=== PATIENT | male | born 1950 | race Caucasian/White ===

== ENCOUNTER 2024-02-11 10:52 | Outpatient (CLI) | payer MEDICARE, OTHER, SELFPAY ==
--- NOTE | ~2024-02-11 | US_ITS ---
EXAMINATION: US scrotum doppler DATE: 02/11/2024 11:27 INDICATION: Right testicular lump TECHNIQUE: Testicular sonogram utilizing grayscale and Doppler COMPARISON: None. FINDINGS: The right testis measures 3.9 x 1.8 x 2.5 cm. The left testis measures 3.4 x 2.0 x 2.4 cm. Symmetric normal grayscale appearance to both testes. There is normal vascular flow to both testes. There are s ubcentimeter anechoic epididymal cysts measuring up to 6 mm in maximal diameter on the right and 4 mm on the left. The bilateral epididymides are otherwise normal with normal vascular flow. There is no varicocele or hydrocele. IMPRESSION: 1. Subcentimeter bilateral epididymal cysts. Otherwise normal scrotal ultrasound. Reviewed, dictated and finalized at location A. IMPRESSION: 1. Subcentimeter bilateral epididymal cysts. Otherwise normal scrotal ultrasou nd.
== END 2024-02-11 10:53 ==
LOC: MICIMG 10:55
PROVIDERS: PCP Registered Nurse; Visit Provider Registered Nurse
DX: N50.3 Cyst of epididymis (principal)
CPT/HCPCS: 76870; 93976

== ENCOUNTER 2024-11-19 14:37 | Outpatient (CLI) | payer MEDICARE, OTHER, SELFPAY ==
--- NOTE | ~2024-11-19 | US_ITS ---
EXAMINATION: US carotid duplex BI DATE: 11/19/2024 15:09 INDICATION: Dizziness and giddiness. TECHNIQUE: Grayscale, color Doppler, and pulsed Doppler images of the cervical carotid arteries were obtained. The degree of vessel stenosis is placed in one of the following categories: normal, <50%, 5 0-69%, >=70% but less than near-occlusion, near-occlusion, or total occlusion. Note that percent sten osis relative to normal distal artery lumen diameter is indirectly measured from velocity measurement s as described by Ed, et al. Radiology 2003; 229:340-346. COMPARISON: None. FINDINGS: RIGHT: The right common carotid artery (CCA) peak systolic velocity (PSV) is 82 cm/s. The right internal car otid artery (ICA) PSV is 97 cm/s. The right ICA end-diastolic velocity (EDV) is 14 cm/s. The right IC A/CCA PSV ratio is 1.2. Grayscale and color Doppler images yield an estimate of <50% diameter reducti on from plaque in the ICA. There is antegrade flow in the right vertebral artery. LEFT: The left CCA PSV is 90 cm/s. The left ICA PSV is 105 cm/s. The left ICA EDV is 21 cm/s. The left ICA/ CCA PSV ratio is 1.2. Grayscale and color Doppler images yield an estimate of <50% diameter reduction from plaque in the ICA. There is antegrade flow in the left vertebral artery. IMPRESSION: 1. <50% stenosis in the right internal carotid artery. 2. <50% stenosis in the left internal carotid artery. Reviewed, dictated and finalized at location A. SE WIRE DRAWER
--- OUTSIDE RECORDS SUMMARY | 2024-11-19 16:59 | XMS_ITS | Encounter Summary ---
Author Organization [facility] Address [address] [place] [address] Care Team Providers Care Molder Shoulder Pad Name Role Phone Unavailable Primary Care Provider Unavailabl e Encounter Details Date Type Department Care Team (Late st Contact Info) Description 02/04/2020 Lab Requisition [facility] DermPath Lab [address] [facility], [place] [id number] Mirtha Wells MD [address] [facility] [address] [place] [address] Social History Tobacco Use Types Packs/Day Years Used Date Smoking Tobacco: Never Assessed Sex and Gender Information Value Date Recorded Sex Assigned at Not on file Gender Identity Not on file Sexual Orientation Not on file documented as of this encounter Plan of Treatment Not on file documented as of this encounter Procedures Procedure Name Priority Date/Time Associated Diagnosis Comments DERMATOPATH TECHNICAL REPORT Routine 02/04/2020 12:00 AM CDT documented in this encounter Results * DERMATOPATH TECHNICAL REPORT (02/04/2020 12:00 AM CDT) Case Report Dermatopathology Report Case: [id number] Authorizing Provider: Mirtha Wells MD Collected: 02/04/2020 12:00 AM Ordering Location: [facility] D[facility]Path Lab Received: 02/04/2020 10:43 AM Pathologist: Carmel Strong MD Specimens: A) - Skin, right post neck B) - Skin, right hairline/FH 0 12:44 PM CDT DERMATOPATHOLOGY LABORATORY Clinical History A-B: R/O BCC, irritated, non-healing. 0 12:44 PM CDT DERMATOPATHOLOGY LABORATORY Gross Description Specimen A: Received is one formalin filled container labeled with the patient's name and designated right post neck. The specimen consists of a shave measuring [id number]. Jar 0. Specimen B: Received is one formalin filled container labeled with the patient's name and designated right hairline/FH. The specimen consists of a shave measuring [id number]. Jar 0. [facility] Dermatopathology Laboratory performed the technical component only. 0 12:44 PM CDT DERMATOPATHOLOGY LABORATORY Embedded Images 0 12:44 PM CDT DERMATOPATHOLOGY LABORATORY DISCLAIMER An external and internal positive and negative controls are appropriate for the histochemical, immunohistochemical and immunofluorescence stain(s) in this case (if any), except where stated explicitly. The performance characteristics of the stain(s) cited in this report were developed and its performance characteristic determined by the Dermatopathology Laboratory at [facility], directed by Dr. Jenny Berger. These tests need not be, and therefore are not, approved by the [place] Food and Drug Administration. The tests are used for clinical purposes. 0 12:44 PM CDT DERMATOPATHOLOGY LABORATORY Pathology/Cytology TISSUE SPECIMEN FROM SKIN / Unknown 02/04/2020 02/04/2020 10:43 AM CDT Miscellaneous samples (specimen) TISSUE SPECIMEN FROM SKIN / Unknown 02/04/2020 02/04/2020 10:43 AM CDT Mirtha Wells MD LAB - PATHOLOGY/CYT OLOGY ORDERABLES DERMATOPATHOLOGY LABORATORY [facility] - Department of Dermatology [address] [place] [address], [address] [place] [address], [facility] [phone] documented in this encounter Visit Diagnoses Not on filedocumented in this encounter
--- OUTSIDE RECORDS SUMMARY | 2024-11-19 16:59 | XMS_ITS | Clinical Summary ---
Author Organization [facility] Address [address] [place] [address] Care Team Providers Care Mailing Specialist Name Role Phone Alaina Jennings HARINDERALFONZO Primary Care Provider Allergies Active Allergy Reactions Criticality Noted Date Comments Seasonal Eyes Water & Itch 03/10/2021 Medications latanoprost 0.005 % ophthalmic solution 7 Active ALPHAGAN P 0.15 % ophthalmic solution 0 Active dorzolamide-rashi olol 22.3-6.8 MG/ML Solution 0 Active atorvastatin (LIPITOR) 80 MG tabletIndicatio ns:Hyperlipidem ia Take 1 tablet (80 mg total) by mouth nightly at bedtime. 90 tablet 3 4 Active donepezil (ARICEPT) 5 MG TabIndications: MCI (mild cognitive impairment) Take 1 tablet (5 mg total) by mouth nightly at bedtime. 90 tablet 11 4 Active fluticasone propionate (FLONASE) 50 MCG/ACT nasal sprayIndication s:Seasonal allergies 2 sprays by Nasal route daily. 48 g 1 4 Active Additional Information Patient not taking.Reported on 11/05/2024 cetirizine (ZYRTEC) 10 MG tabletIndicatio ns:Seasonal allergies Take 1 tablet (10 mg total) by mouth daily. 90 tablet 1 4 Active Additional Information Patient not taking.Reported on 11/05/2024 guaiFENesin ER (MUCINEX) 600 MG 12 hr tablet Take 2 tablets (1,200 mg total) by mouth 2 (two) times daily. Active tamsulosin (FLOMAX) 0.4 MG CapIndications: Lower urinary tract symptoms (LUTS) Take 1 capsule (0.4 mg total) by mouth daily. 90 capsule 3 4 Active Additional Information Patient not taking.Reported on 11/05/2024 fluticasone propionate (FLONASE) 50 MCG/ACT nasal sprayIndication s:Dysfunction of left eustachian tube 2 sprays by Nasal route daily. 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 Hearing loss 09/28/2012 Hypogonadism, testicular 09/27/2012 Hyperlipidemia 05/13/2012 Resolved Problems Problem Noted Date Diagnosed Date Resolved Date Pre-operative clearance 01/19/2022 05/0 10/2021 Screening PSA (prostate specific antigen) 08/09/2017 06/04/2020 Encounters Date Type Department Care Team Description 11/12/2024 Telephone [facility] & Internal [address] [phone] Alaina Jennings APNP Lab Results 11/06/2024 7:40 AM AIRPLANE MECHANIC Laboratory Only [facility] Family & Internal [address] [phone] Alaina Jennings APNP 11/05/2024 9:00 AM AIRPLANE MECHANIC Office Visit [facility] Internal [address] [phone] Alaina Jennings APNP Weight Loss (Pt c/o decreased appetite and weight loss.); Dizziness 11/05/2024 Travel 10/13/2024 1:00 PM AIRPLANE MECHANIC Office Visit [facility] Multispecialty Care - [facility] [address], [address] [place] [phone] Kel Cummings MD Follow Up 10/13/2024 Travel 09/25/2024 Scan [facility] SRVCS Scanned, [facility] 08/29/2024 10:00 AM AIRPLANE MECHANIC Office Visit [facility] Family & Internal Medicine [address] [phone] Alaina Jennings, APNP Ear Problem (Pt c/o constant ringing in left ear. ); Vertigo- Recurrent 08/29/2024 Travel 08/22/2024 Telephone [facility] Internal [address] [phone] Alaina Jennings, APNP Problem from Last 3 Months Immunizations Name Administration Dates Next Due Fluarix (IIV4) 07/10/2019 Fluzone High Dose - >Age 65 (Prefilled Syringe) 07/10/2023,06/28/2022,07/05/2021, 018,09/11/2017 Influenza Adult (Generic) 06/04/2020,,06/18/2018, 017 MODERNA COVID-19 (12+), MRNA , LNP-S, PF, 50 MCG/0.5 ML (SPIKEVAX) 07/10/2023 MODERNA COVID-19 (RESTAUR[employer] K[employer] ROSIE JAMSHID), MRNA, LNP-S, PF, 50 MCG/ 0.25 ML DOSE 02/15/2022 Shingrix 06/21/2019,06/18/2019 Family History Medical History Relation Comments Cancer Father Lung Cancer Father Diabetes Maternal Grandmother Cancer Mother Tuberculosis Mother Relation Status Comments Father Maternal Grandmother Mother Social History Tobacco Use Types Packs/Day Years Used Date Smoking Tobacco: Never Passive Smoke Exposure: Past Smokeless Tobacco: Never Tobacco Cessation:Counseling Given: No Alcohol Use Standard Drinks/Week Comments Yes 1.7 (1 standard drink = 0.6 oz p ure alcohol) A WEEK AUDIT-C Answer Date Recorded Q1: How often do you have a drink containing alcohol? 2-4 times a month 01/23/2024 Q2: How many drinks containi ng alcohol do you have on a typical day when you are drinking? Patient does not drink Q3: How often do you have si x or more drinks on one occasion? Never 01/23/2024 PHQ-2 Answer Date Recorded Patient Health Questionnaire-2 Score 0 11/05/2024 Sex and Gender Information Value Date Recorded Sex Assigned at Not on file Legal Sex Male 4:21 PM CDT Gender Identity Male 09/07/2021 8:53 PM AIRPLANE MECHANIC Sexual Orientation Not on file Last Filed Vital Signs Vital Sign Reading Time Taken Comments Blood Pressure 104/54 11/05/2024 9:06 AM AIRPLANE MECHANIC Pulse 96 11/05/2024 9:06 AM AIRPLANE MECHANIC Temperature 35.9 C (96.6 F) 11/05/2024 9:06 AM AIRPLANE MECHANIC Respiratory Rate 16 11/05/2024 9:06 AM AIRPLANE MECHANIC Oxygen Saturation 98% 11/05/2024 9:06 AM AIRPLANE MECHANIC Inhaled Oxygen Concentration - - Weight 80.6 kg (177 lb 12.8 oz) 11/05/2024 9:06 AM AIRPLANE MECHANIC Height 177.8 cm (5' 10 ) 11/05/2024 9:06 AM AIRPLANE MECHANIC Body Mass Index 25.51 11/05/2024 9:06 AM AIRPLANE MECHANIC Plan of Treatment Upcoming Encounters Date Type Department Care Team (Late st Contact Info) Description 04/13/2025 1:00 PM CDT Office Visit [facility] Multispecialty Care - [address], [address] [place] [phone] Kel Cummings MD [address] [place] [address] Health Maintenance Due Date Last Done Comments Pneumococcal Vaccine: 65+ Years (1 of 1 - PCV) 2016 COVID-19 Vaccine (2023- season) 2024 07/10/2023, 06/28/2022, 02/15/2022, Additional history exists Influenza Adult (#1) 2024 07/10/2023, 06/28/2022, 07/05/2021, Additional history exists DTaP, Tdap and Td Vaccines (1 - Tdap) 01/22/2025 Postponed from 1970 (No Insurance Coverage) Zoster Vaccines (2 of 2) 01/22/2025 06/21/2019, 05/26 Postponed from 08/16/2019 (Going to Outside Clinic) Annual Medicare Wellness Visit 01/23/2025 01/23/2024 RSV Immunization or 60+ Years (1 - 1-dose 75+ series) 2026 Colorectal Cancer Screening Colonoscopy (10 Years) 07/04/2031 07/04/2021, 07/04/2021 Hepatitis C Completed 03/06/2022 PHQ-2 (Physician [place]) Completed 11/05/2024 Meningococcal B Vaccine Aged Out No l onger eligible based on patient's age to complete this topic Meningococcal Vaccine Aged Out No margaret yaritza eligible based on patient's age to complete this topic RSV Immunizations Under 20 Months Aged Out No longer eligible based on patient's age to complete this topic Procedures Procedure Name Priority Date/Time Associated Diagnosis Comments COLLECTION VENOUS BLOOD VENIPUNCTURE Routine 11/06/2024 8:08 AM AIRPLANE MECHANIC Dizziness Mixed hyperlipidemia Weight loss TSH W/REFLEX Routine 11/06/2024 8:08 AM AIRPLANE MECHANIC Weight loss Mixed hyperlipidemia LIPID PANEL Routine 11/06/2024 8:08 AM AIRPLANE MECHANIC Mixed hyperlipidemia CBC W/DIFF AUTOMATED Routine 11/06/2024 8:08 AM AIRPLANE MECHANIC Dizziness COMPREHENSIVE METABOLIC PANEL Routine 11/06/2024 8:08 AM AIRPLANE MECHANIC Dizziness ELECTROCARDIOGRAM (NON MIDMARK ACQUIRED) Routine 11/05/2024 9:46 AM AIRPLANE MECHANIC Dizziness REMOVAL IMPACTED CERUMEN IRRIGATION/LAVAGE UNILAT Routine 11/05/2024 9:00 AM AIRPLANE MECHANIC Impacted cerumen of right ear HEPATITIS C ANTIBODY W/RFX TO HCV RNA Routine 03/06/2022 12:34 PM CDT Need for hepatitis C screening test COLONOSCOPY Routine 07/04/2021 3:15 PM CDT from Last 3 Months or Most Recently Relevant to Health Maintenance Results * TSH W/REFLEX (11/06/2024 8:08 AM AIRPLANE MECHANIC) TSH 1.936 0.358 - 3.740 uIU/ML 11/06/2024 2:49 PM AIRPLANE MECHANIC [facility] 11/06/2024 8:0 8 AM AIRPLANE MECHANIC [facility] Final Resul t [facility] [address] [place] [address], * (ABNORMAL) COMPREHENSIVE METABOLIC PANEL (11/06/2024 8:08 AM AIRPLANE MECHANIC) SODIUM S/P/B 142 136 - 145 MMOL/L 11/06/2024 2:49 PM AIRPLANE MECHANIC [facility] POTASSIUM S/P/B 4.7 3.5 - 5.1 MMOL/L 11/06/2024 2:49 PM AIRPLANE MECHANIC [facility] CHLORIDE S/P/B 106 98 - 107 MMOL/L 11/06/2024 2:49 PM AIRPLANE MECHANIC [facility] CO2 27.0 21 - 32 MMOL/L 11/06/2024 2:49 PM AIRPLANE MECHANIC [facility] GLUCOSE 109(H) 70 - 99 MG/DL 11/06/2024 2:49 PM AIRPLANE MECHANIC [facility] BUN 11 7 - 18 MG/DL 11/06/2024 2:49 PM AIRPLANE MECHANIC [facility] CREATININE S/P/B 0.86 0.70 - 1.30 MG/DL 11/06/2024 2:49 PM AIRPLANE MECHANIC [facility] CALCIUM S/P/B 8.5 8.4 - 10.5 MG/DL 11/06/2024 2:49 PM [facility] BILIRUBIN TOTAL S/P/B 0.9 0.2 - 1.0 MG/DL 11/06/2024 2:49 PM [facility] ALKALINE PHOSPHATASE S/P/B 68 45 - 115 U/L 11/06/2024 2:49 PM [facility] AST 24 15 - 37 U/L 11/06/2024 2:49 PM [facility] ALT 33 16 - 63 U/L 11/06/2024 2:49 PM [facility] TOTAL PROTEIN S/P/B 6.3(L) 6.4 - 8.2 G/DL 11/06/2024 2:49 PM [facility] ALBUMIN S/P/B 3.3(L) 3.4 - 5.0 G/DL 11/06/2024 2:49 PM [facility] ANION GAP 9.0 5 - 15 MMOL/L 11/06/2024 2:49 PM [facility] Comment:REFERENCE RANGE NOT ESTABLISHED OSMOLALITY (CALC) 294 MOSM/KG 025 2:49 PM [facility] Comment:REFERENCE RANGE NOT ESTABLISHED GFR ESTIMATE >90 >90 ML/MIN/1. 73 M2 11/06/2024 2:49 PM [facility] GFR NOTES GFR REFERENCE S: 11/06/2024 2:49 PM [facility] Comment: THE ESTIMATED GFR IS CALCULATED USING THE 2020 CKD-EPI EQUATION. THE FOLLOWING CATEGORIES FOR GRADING RENAL FUNCTION ARE RECOMMENDED BY THE INTERNATIONAL SOCIETY OF NEPHROLOGY (KDIGO 2012 CLINICAL PRACTICE GUIDELINE). G1,NORMAL OR HIGH: >89 ml/min/1.73 m2 G2,MILDLY DECREASED: 60-89 ml/min/1.73 m2 G3A,MILDLY TO MODERATELY DECREASED: 45-59 ml/min/1.73 m2 G3B,MODERATELY TO SEVERELY DECREASED: 30-44 ml/min/1.73 m2 G4,SEVERELY DECREASED: 15-29 ml/min/1.73 m2 G5,KIDNEY FAILURE: <15 ml/min/1.73 m2 11/06/2024 8:08 AM AIRPLANE MECHANIC [facility] Final Resul t Performing Organization Address City/[facility]/[employer] Co de Phone Number [facility] [address] [place] [address], [place] [phone] * LIPID PANEL (11/06/2024 8:08 AM AIRPLANE MECHANIC) CHOLESTEROL 145 <200 MG/DL 11/06/2024 2:49 PM AIRPLANE MECHANIC [facility] TRIGLYCERIDES 68 <150 MG/DL 11/06/2024 2:49 PM AIRPLANE MECHANIC [facility] HDL 53 >40 MG/DL 11/06/2024 2:49 PM AIRPLANE MECHANIC [facility] LDL-C 78 <100 MG/DL 11/06/2024 2:49 PM AIRPLANE MECHANIC [facility] VLDL CALCULATION 14 5 - 28 MG/DL 11/06/2024 2:49 PM AIRPLANE MECHANIC [facility] CHOL/HDL RATIO 2.7 0.0 - 4.0 11/06/2024 2:49 PM AIRPLANE MECHANIC [facility] LDL/HDL 1.5 0.41 - 2.13 11/06/2024 2:49 PM AIRPLANE MECHANIC [facility] NON HDL CHOLESTEROL 92 <140 MG/DL 11/06/2024 2:49 PM AIRPLANE MECHANIC [facility] 11/06/2024 8:08 AM AIRPLANE MECHANIC [facility] Final Resul t Performing Organization Address City/[facility]/ZIP Co de Phone Number [facility] [address] [place] [address], * (ABNORMAL) CBC W/DIFF AUTOMATED (11/06/2024 8:08 AM [facility]) [facility] WBC 7.07 4.00 - 10.80 x10'3/uL 11/06/2024 2:04 PM [facility] RBC 4.38(L) 4.50 - 6.10 x10'6/uL 11/06/2024 2:04 PM [facility] HGB 13.3 13.0 - 18.0 G/DL 11/06/2024 2:04 PM [facility] HCT 41.9 37.0 - 52.0 % 11/06/2024 2:04 PM [facility] MCV 95.7 78.0 - 100.0 FL 11/06/2024 2:04 PM [facility] MCH 30.4 27.0 - 31.0 PG 11/06/2024 2:04 PM [facility] MCHC 31.7(L) 33.0 - 36.0 G/DL 11/06/2024 2:04 PM [facility] RDW 13.7 11.5 - 14.5 % 11/06/2024 2:04 PM [facility] PLT 177 150 - 350 x10'3/uL 11/06/2024 2:04 PM [facility] MPV 9.2 7.4 - 10.4 FL 11/06/2024 2:04 PM [facility] DIFFERENTIAL TYPE AUTOMATED DIFFERENTIAL 11/06/2024 2:04 PM [facility] NEUTROPHILS % 70.3 % 11/06/2024 2:04 PM [facility] LYMPHOCYTES % 20.8 % 11/06/2024 2:04 PM [facility] MONOCYTES % 7.2 % 11/06/2024 2:04 PM [facility] EOSINOPHILS % 1.3 % 11/06/2024 2:04 PM AIRPLANE MECHANIC [facility] BASOPHILS % 0.3 % 11/06/2024 2:04 PM AIRPLANE MECHANIC [facility] IMMATURE GRANS % 0.1 % 11/06/2024 2:04 PM AIRPLANE MECHANIC [facility] ABS. NEUTROPHILS 4.97 1.60 - 8.30 x10'3/uL 11/06/2024 2:04 PM AIRPLANE MECHANIC [facility] ABS. LYMPHOCYTES 1.47 0.80 - 4.70 x10'3/uL 11/06/2024 2:04 PM AIRPLANE MECHANIC [facility] ABS. MONOCYTES 0.51 0.00 - 1.50 x10'3/uL 11/06/2024 2:04 PM AIRPLANE MECHANIC [facility] ABS. EOSINOPHILS 0.09 0.00 - 0.40 x10'3/uL 11/06/2024 2:04 PM AIRPLANE MECHANIC [facility] ABS. BASOPHILS 0.02 0.00 - 0.20 x10'3/uL 11/06/2024 2:04 PM AIRPLANE MECHANIC [facility] ABS. IMMATURE GRANULOCYTES 0.01 0.00 - 0.03 x10'3/uL 11/06/2024 2:04 PM AIRPLANE MECHANIC [facility] 11/06/2024 8:08 AM AIRPLANE MECHANIC us [facility] Final Resul t [facility] [address] [place] [address], * EKG WELCHALLEN ACQUIRED (11/05/2024 9:46 AM AIRPLANE MECHANIC) 11/05/2024 9:46 AM AIRPLANE MECHANIC Narrative [facility] - 11/05/2024 11:31 AM AIRPLANE MECHANIC [facility] [address] [place] [address] Test Date: 2024-11-05 Pat Name: JEVON MEJIA Department: 171 Room: Gender: Male Molded Goods Operator: : 1950 Requested By: FROILAN LAYTON Order Number: [id number] Reading : Froilan Layton Measurements Intervals Padroni Rate: 72 P: 18 MD: 215 QRS: -28 QRSD: 95 T: 55 QT: 379 QTc: 415 Interpretive Statements SINUS RHYTHM WITH FIRST DEGREE AV BLOCK BORDERLINE LEFT AXIS DEVIATION No prior ECG for comparison LANE MECHANIC Procedure Note Froilan Layton MD - 11/05/2024 [facility] [address] [place] [address] Test Date: 2024-11-05 Pat Name: JEVON MEJIA Department: 171 Room: Gender: Male Molded Goods Operator: : 1950 Requested By: FROILAN LAYTON Order Number: [id number] Reading DENA Layton Measurements Intervals Padroni Rate: 72 P: 18 MD: 215 QRS: -28 QRSD: 95 T: 55 QT: 379 QTc: 415 Interpretive Statements SINUS RHYTHM WITH FIRST DEGREE AV BLOCK BORDERLINE LEFT AXIS DEVIATION No prior ECG for comparison LANE MECHANIC us Froilan Layton MD PROCEDURES-ORDERABLE NO CHARGE Final Result [facility] * REMOVAL IMPACTED CERUMEN IRRIGATION/LAVAGE UNILAT (11/05/2024 9:00 AM AIRPLANE MECHANIC) Narrative Alaina Jennings APNP - 11/05/2024 9:00 AM AIRPLANE MECHANIC JAQUELINE Saunders 11/05/2024 10:18 AM *Ear Cerumen Removal Date/Time: 11/05/2024 9:00 AM Performed by: JAQUELINE Saunders Authorized by: JAQUELINE Saunders Location details: right ear Patient tolerance: patient tolerated the procedure well with no immediate complications Procedure type: irrigation Sedation: Patient sedated: no us Alaina [facility] PROCEDURE/MINOR SURGICAL OR DERABLES Final Result * HEPATITIS C ANTIBODY W/RFX TO HCV RNA ([facility] ONLY) (03/06/2022 12:34 PM CDT) HEPATITIS C AB NON-REACTI VE NON-REACT LEVI [facility] SIGNAL TO CUTOFF 0.01 <1.[address] [facility] Comment: HCV antibody was non-reactive. There is no laboratory evidence of HCV infection. In most cases, no further action is required. However, if recent HCV exposure is suspected, a test for HCV RNA (test code 40051) is suggested. For additional information please refer to http://education.Pull/faq/KBV60k3 (This link is being provided for informational/ educational purposes only.) 03/06/2022 12:3 4 PM CDT 03/06/2022 12:38 PM CDT Narrative [facility] - 03/07/2022 1:54 PM CDT FASTING:YES FASTING: YES [facility] Final Resul t [facility] [address] [facility] [place] [address] from Last 3 Months or Most Recently Relevant to Health Maintenance Insurance MEDICARE [facility] Care Teams Mailing Specialist Relationship Specialty Start Date End Date Alaina Jennings APNP [address] [place] [id number] PCP - General NURSE PRACTITIONER 12/23/18
--- OUTSIDE RECORDS SUMMARY | 2024-11-19 16:59 | XMS_ITS | Encounter Summary ---
Author Organization [facility] Address [address] [place] [address] Care Team Providers Care Tape Editor Name Role Phone Unavailable Primary Care Provider Unavailabl e Encounter Details Date Type Department Care Team (Late st Contact Info) Description 04/30/2023 Lab Requisition [facility] - DermPath Lab [address] [facility], [place] [address] Pina Smith MD [address] [facility] [address] [place] [address] Social History Tobacco Use Types Packs/Day Years Used Date Smoking Tobacco: Never Assessed Sex and Gender Information Value Date Recorded Sex Assigned at Not on file Gender Identity Not on file Sexual Orientation Not on file documented as of this encounter Plan of Treatment Not on file documented as of this encounter Procedures Procedure Name Priority Date/Time Associated Diagnosis Comments DERMATOPATHOLOGY Routine 04/30/2023 8:20 AM CDT documented in this encounter Results * DERMATOPATHOLOGY (04/30/2023 8:20 AM CDT) Case Report Dermatopathology Report Case: [id number] Authorizing Provider: Pina Smith MD Collected: 04/30/2023 08:20 AM Ordering Location: [facility] DermPath Lab Received: 04/30/2023 04:46 PM Pathologist: Sakina Hopper MD Specimens: A) - Skin, left cheek B) - Skin, abdomen 12:35 PM CDT DERMATOPATHOLOGY LABORATORY Final Diagnosis Specimen A. 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 The specimen consists of a shave biopsy measuring 7x7x1 mm. Jar 0. Specimen B: Received is one formalin filled container labeled with the patient's name and designated abdomen. The specimen consists of a shave biopsy measuring 5x5x1 mm. Jar 0. 12:35 PM [facility] DERMATOPATHOLOGY LABORATORY Microscopic Description Specimen A. SKIN, left cheek: The epidermis shows parakeratosis, full thickness disorderly maturation of keratinocytes, mitoses at different levels, and dyskeratotic cells. In some foci, there is loss of cohesion between the neoplastic cells, as well as individual dyskeratotic cells that lack intercellular bridges. The lesion extends to the base of the specimen as adnexal extension. Specimen B. SKIN, abdomen: The epidermis shows parakeratosis, full thickness disorderly maturation of keratinocytes, mitoses at different levels, and dyskeratotic cells. 12:35 PM T DERMATOPATHOLOGY LABORATORY Disclaimer An external and internal positive and negative controls are appropriate for the histochemical, immunohistochemical and immunofluorescence stain(s) in this case (if any), except where stated explicitly. The performance characteristics of the stain(s) cited in this report were developed and its performance characteristic determined by the Dermatopathology Laboratory at [facility], directed by Dr. Jenny Berger. These tests need not be, and therefore are not, approved by the [place] Food and Drug Administration. The tests are used for clinical purposes. Billing Codes Specimen Charges Stain Charges 14627 41237 1 1 3 12:35 PM CDT DERMATOPATHOLOGY LABORATORY Embedded Images 12:35 PM CDT DERMATOPATHOLOGY LABORATORY Pathology/Cytology TISSUE SPECIMEN FROM SKIN / Unknown 04/30/2023 8:20 AM CDT 04/30/2023 4:46 PM CDT Miscellaneous samples (specimen) TISSUE SPECIMEN FROM SKIN / Unknown 04/30/2023 8:20 AM CDT 04/30/2023 4:46 PM CDT Pina Smith MD LAB - PATHOLOGY/CYTO LOGY ORDERABLES DERMATOPATHOLOGY LABORATORY [facility] - Department of Dermatology [facility] Specialized Medicine [address] [place] [address], [address] Floor [address] [phone] documented in this encounter Visit Diagnoses Not on filedocumented in this encounter
--- OUTSIDE RECORDS SUMMARY | 2024-11-19 16:59 | XMS_ITS | Patient Health Summary ---
Author Organization [facility] Address [address] [facility] [place] [address] Care Team Providers Care A/C Tech Name Role Phone Unavailable Primary Care Provider Unavailabl e Note from [facility],non-owned Affiliates and Associated Physician Practices is amultiple site organization consisting of ambulatory clinics and hospital sitesin [place], [place], [place] and [place]. This disclosure is being madepursuant to the Care Everywhere program and may not contain all information available regarding this patient. Last updated 18.[facility] Social History Tobacco Use Types Packs/Day Years Used Date Smoking Tobacco: Never Assessed Sex and Gender Information Value Date Recorded Sex Assigned at Not on file Gender Identity Not on file Sexual Orientation Not on file Procedures * DERMATOPATHOLOGY(Performed 06/05/2024) * DERMATOPATHOLOGY(Performed 05/29/2024) * DERMATOPATHOLOGY(Performed 06/28/2023) * DERMATOPATHOLOGY(Performed 04/30/2023) * DERMATOPATHOLOGY(Performed 01/03/2023) * DERMATOPATHOLOGY(Performed 11/16/2022) * DERMATOPATHOLOGY(Performed 10/12/2022) * DERMATOPATHOLOGY(Performed 04/01/2020) * DERMATOPATH TECHNICAL REPORT(Performed 02/04/2020) * DERMATOPATHOLOGY(Performed 08/06/2019) * DERMATOPATHOLOGY(Performed 03/12/2019) * DERMATOPATH TECHNICAL REPORT(Performed 05/22/2018) * DERMATOPATHOLOGY(Performed 02/27/2018) * DERMATOPATHOLOGY(Performed 08/29/2017) * DERMATOPATHOLOGY(Performed 09/06/2016) * DERMATOPATHOLOGY(Performed 07/14/2016) * DERMATOPATHOLOGY(Performed 05/16/2016) * DERMATOPATHOLOGY(Performed 09/08/2014) Results * DERMATOPATHOLOGY (06/05/2024 2:08 PM CDT) Only the most recent of16 resultswithin the time period is included. Case Report Dermatopathology Report Case: [id number] Authorizing Provider: Pina Smith MD Collected: 06/05/2024 02:08 PM Ordering Location: [facility] - Received: 06/09/2024 06:57 AM DermPath Lab Pathologist: Sakina Hopper MD Specimen: Skin, right back 11:55 AM T DERMATOPATHOLOGY LABORATORY Final Diagnosis Specimen A. SKIN, right back: SQUAMOUS CELL CARCINOMA IN SITU (SOFIA'S DISEASE) (D04.5) NOT PRESENT AT MARGIN DERMAL SCAR (L90.5) 11:55 AM [facility] DERMATOPATHOLOGY LABORATORY Clinical History SCCIS bx proven 11:55 AM [facility] DERMATOPATHOLOGY LABORATORY Gross Description Specimen A: Received is one formalin filled container labeled with the patient's name and designated right back.The specimen consists of an ellipse measuring 63g00x88 mm and is oriented with the suture/notch at the 12 o'clock position labeled on the requisition. The 12 to 6 o'clock margin is inked green. The 6 o'clock to 12 o'clock margin is inked red. The 12 o'clock tip is submitted in cassette 1. The 6 o'clock tip is submitted in cassette 2. The remainder of the ellipse is serially sectioned and submitted in cassettes 3-6. Jar 0. 11:55 AM [facility] DERMATOPATHOLOGY LABORATORY Microscopic Description Specimen A. SKIN, right back: The epidermis shows parakeratosis, full thickness disorderly maturation of keratinocytes, mitoses at different levels, and dyskeratotic cells. This lesion is not present at the margin of the specimen. There are fibroblasts and collagen bundles oriented parallel to the skin surface with elongated blood vessels, some of which are oriented perpendicular to the skin surface. 11:55 AM [facility] DERMATOPATHOLOGY LABORATORY Disclaimer An external and internal positive and negative controls are appropriate for the histochemical, immunohistochemical and immunofluorescence stain(s) in this case (if any), except where stated explicitly. The performance characteristics of the stain(s) cited in this report were developed and its performance characteristic determined by the Dermatopathology Laboratory at [facility], directed by Dr. Jenny Berger. These tests need not be, and therefore are not, approved by the [place] Food and Drug Administration. The tests are used for clinical purposes. Billing Codes Specimen Charges Stain Charges 02929 1 4 11:55 AM CDT DERMATOPATHOLOGY LABORATORY Embedded Images 4 11:55 AM CDT DERMATOPATHOLOGY LABORATORY Pathology/Cytolo gy TISSUE SPECIMEN FROM SKIN / Unknown 06/05/2024 2:08 PM CDT 06/09/2024 6:57 AM CDT Pina Smith MD LAB - PATHOLOGY/CYTO LOGY ORDERABLES DERMATOPATHOLOGY LABORATORY [facility] Department of Dermatology [address], [address] [phone] * DERMATOPATH TECHNICAL REPORT (02/04/2020 12:00 AM CDT) Only the most recent of2 resultswithin the time period is included. Case Report Dermatopathology Report Case: [id number] Authorizing Provider: Mirtha Wells MD Collected: 02/04/2020 12:00 AM Ordering Location: [facility] DermPath Lab Received: 02/04/2020 10:43 AM Pathologist: [...] The specimen consists of a shave measuring 61g6y8ma. Jar 0. Specimen B: Received is one formalin filled container labeled with the patient's name and designated right hairline/FH. The specimen consists of a shave measuring 5d0a8tp. Jar 0. [facility] Dermatopathology Laboratory performed the technical component only. [...] characteristic determined by the Dermatopathology Laboratory at [facility], directed by Dr. Jenny Berger. These tests [...] LAB - PATHOLOGY/CYT OLOGY ORDERABLES DERMATOPATHOLOGY LABORATORY [facility] - Department of Dermatology [facility] 5th Floor Lab B [address] [phone]
--- OUTSIDE RECORDS SUMMARY | 2024-11-19 16:59 | XMS_ITS | Encounter Summary ---
Author Organization [facility] Address [address] [address] [place] [address] Care Team Providers Care Casing Puller Name Role Phone Unavailable Primary Care Provider Unavailabl e Encounter Details Date Type Department Care Team (Late st Contact Info) Description 06/05/[address] [facility] - DermPath Lab [address] [facility], [facility] [place] [address] Pina Smith MD [address] [facility] [address] [place] [address] Social History Tobacco Use Types Packs/Day Years Used Date Smoking Tobacco: Never Assessed Sex and Gender Information Value Date Recorded Sex Assigned at Not on file Gender Identity Not on file Sexual Orientation Not on file documented as of this encounter Plan of Treatment Not on file documented as of this encounter Procedures Procedure Name Priority Date/Time Associated Diagnosis Comments DERMATOPATHOLOGY Routine 06/05/2024 2:08 PM CDT documented in this encounter Results * DERMATOPATHOLOGY (06/05/2024 2:08 PM CDT) Case Report Dermatopathology Report Case: [id number] Authorizing Provider: Pina Smith MD Collected: 06/05/2024 02:08 PM Ordering Location: [facility] Physician [facility] - Received: 06/09/2024 06:57 AM DermPath Lab Pathologist: Sakina Hopper MD Specimen: Skin, right back 11:55 AM CDT DERMATOPATHOLOGY LABORATORY Final Diagnosis Specimen A. SKIN, right back: SQUAMOUS CELL CARCINOMA IN SITU (SOFIA'S DISEASE) (D04.5) NOT PRESENT AT MARGIN DERMAL SCAR (L90.5) 11:55 AM CDT DERMATOPATHOLOGY LABORATORY Clinical History SCCIS bx proven 11:55 AM CDT DERMATOPATHOLOGY LABORATORY Gross Description Specimen A: Received is one formalin filled container labeled with the patient's name and designated right back.The specimen consists of an ellipse measuring 51v94l76 mm and is oriented with the suture/notch [...] in cassettes 3-6. Jar 0. 11:55 AM CDT DERMATOPATHOLOGY LABORATORY Microscopic Description Specimen A. SKIN, [...] perpendicular to the skin surface. 11:55 AM CDT DERMATOPATHOLOGY LABORATORY Disclaimer An external and internal positive and negative controls are appropriate for the histochemical, immunohistochemical and immunofluorescence stain(s) in this case (if any), except where stated explicitly. The performance characteristics of the stain(s) cited in this report were developed and its performance characteristic determined by the Dermatopathology Laboratory at [facility], directed by Dr. Jenny Berger. These tests need not be, and therefore are not, approved by the [place] Food and Drug Administration. The tests are used for clinical purposes. Billing Codes Specimen Charges Stain Charges 94267 1 11:55 AM CDT DERMATOPATHOLOGY LABORATORY Embedded Images 11:55 AM CDT DERMATOPATHOLOGY LABORATORY Pathology/Cytolo gy TISSUE SPECIMEN FROM SKIN / Unknown 06/05/2024 2:08 PM CDT 06/09/2024 6:57 AM CDT Pina Smith MD LAB - PATHOLOGY/CYTO LOGY ORDERABLES DERMATOPATHOLOGY LABORATORY [facility] - Department of Dermatology [facility] Medicine [facility] [facility], 3rd Floor [address] [phone] documented in this encounter Visit Diagnoses Not on filedocumented in this encounter
--- OUTSIDE RECORDS SUMMARY | 2024-11-19 16:59 | XMS_ITS | Referral Summary ---
Author Organization [facility] Address [address] [place] [address] Care Team Providers Care Fingerprint Classifier Name Role Phone Unavailable Primary Care Provider Unavailabl e Source Comments [facility],non-owned Affiliates and Associated Physician Practices is amultiple site organization consisting of ambulatory clinics and hospital sitesin [place], [place], [place] and [place]. This disclosure is being madepursuant to the Care Everywhere program and may not contain all information available regarding this patient. Last updated 18.[facility] Social History Tobacco Use Types Packs/Day Years Used Date Smoking Tobacco: Never Assessed Sex and Gender Information Value Date Recorded Sex Assigned at Not on file Gender Identity Not on file Sexual Orientation Not on file Plan of Treatment Not on file
--- OUTSIDE RECORDS SUMMARY | 2024-11-19 16:59 | XMS_ITS | Encounter Summary ---
Author Organization [facility] Address [address] [facility] [place] [address] Care Team Providers Care Toll Testboard Worker Name Role Phone Unavailable Primary Care Provider Unavailabl e Encounter Details Date Type Department Care Team (Late st Contact Info) Description 03/13/2019 Lab Requisition [facility] Care DermPath Lab [address] [facility] [place] [address] Mirtha Wells MD [address] [facility] [address] [place] [address] Social History Tobacco Use Types Packs/Day Years Used Date Smoking Tobacco: Never Assessed Sex and Gender Information Value Date Recorded Sex Assigned at Not on file Gender Identity Not on file Sexual Orientation Not on file documented as of this encounter Plan of Treatment Not on file documented as of this encounter Procedures Procedure Name Priority Date/Time Associated Diagnosis Comments DERMATOPATHOLOGY Routine 03/12/2019 12:0 0 AM CDT documented in this encounter Results * DERMATOPATHOLOGY (03/12/2019 12:00 AM CDT) Case Report Dermatopathology Report Case: [id number] Authorizing Provider: Mirtha Wells MD Collected: 03/12/2019 12:00 AM Pathologist: Rex Berger MD Received: 03/13/2019 06:35 AM Specimens: A) - Skin, right sikhism B) - Skin, left inferior sideburn 9 2:15 PM CDT DERMATOPATHOLOGY LABORATORY Final Diagnosis Specimen A. SKIN, right sikhism: SQUAMOUS CELL CARCINOMA IN SITU (SOFIA'S DISEASE) (D04.39) PRESENT AT MARGIN Specimen B. SKIN, left inferior sideburn: SQUAMOUS CELL CARCINOMA IN SITU (SOFIA'S DISEASE) (D04.39) PRESENT AT MARGIN 2:15 PM T DERMATOPATHOLOGY LABORATORY Clinical History A-B: R/O BCC, SCC, irritated. Check margins. 2:15 PM T DERMATOPATHOLOGY LABORATORY Gross Description Specimen A: Received is one formalin filled container labeled with the patient's name and designated right sikhism. The specimen consists of a shave (2 pieces) measuring 8x5k2os & 5e3t7bb. The margins are inked green. Jar 0. Specimen B: Received is one formalin filled container labeled with the patient's name and designated left inferior sideburn. The specimen consists of a shave measuring 7n6g7re. The margin is inked green. Jar 0. 2:15 PM T DERMATOPATHOLOGY LABORATORY Microscopic Description Specimen A. SKIN, right sikhism: The epidermis shows parakeratosis, full thickness disorderly maturation of keratinocytes, mitoses at different levels, and dyskeratotic cells. This lesion is present at the margin of the specimen. Specimen B. SKIN, left inferior sideburn: The epidermis shows parakeratosis, full thickness disorderly maturation of keratinocytes, mitoses at different levels, and dyskeratotic cells. This lesion is present at the margin of the specimen. 2:15 PM T DERMATOPATHOLOGY LABORATORY Disclaimer An external and internal positive and negative controls are appropriate for the histochemical, immunohistochemical and immunofluorescence stain(s) in this case (if any), except where stated explicitly. The performance characteristics of the stain(s) cited in this report were developed and its performance characteristic determined by the Dermatopathology Laboratory at [facility], directed by Dr. Jenny Berger. These tests need not be, and therefore are not, approved by the [place] Food and Drug Administration. The tests are used for clinical purposes. Billing Codes Specimen Charges Stain Charges 16596 79010 1 1 2:15 PM CDT DERMATOPATHOLOGY LABORATORY Embedded Images 2:15 PM CDT DERMATOPATHOLOGY LABORATORY Pathology/Cytology TISSUE SPECIMEN FROM SKIN / Unknown 03/12/2019 03/13/2019 6:35 AM CDT Miscellaneous samples (specimen) TISSUE SPECIMEN FROM SKIN / Unknown 03/12/2019 03/13/2019 6:35 AM CDT Mirtha Wells MD LAB - PATHOLOGY/CYT OLOGY ORDERABLES DERMATOPATHOLOGY LABORATORY [facility] - Department of Dermatology [address] [place] [address], 5th Floor Lab B [address] [phone] documented in this encounter Visit Diagnoses Not on filedocumented in this encounter
--- OUTSIDE RECORDS SUMMARY | 2024-11-19 16:59 | XMS_ITS | Clinical Summary ---
Author Organization [facility] Address [address] [place] [address] Care Team Providers Care Senior Litigation Paralegal Name Role Phone Unavailable Primary Care Provider Unavailabl e Source Comments [facility],non-owned Affiliates and Associated Physician Practices is amultiple site organization consisting of ambulatory clinics and hospital sitesin [place], [place], [place] and [place]. This disclosure is being madepursuant to the Care Everywhere program and may not contain all information available regarding this patient. Last updated 18.[facility] [employer] Social History Tobacco Use Types Packs/Day Years Used Date Smoking Tobacco: Never Assessed Sex and Gender Information Value Date Recorded Sex Assigned at Not on file Gender Identity Not on file Sexual Orientation Not on file Plan of Treatment Health Maintenance Due Date Last Done Comments COLOGUARD (AGES 45-75) - COL ON CA SCREENING 1951 COLON MONITORING 1951 COLONOSCOPY - COLON CA SCREENING 1951 CT COLONOGRAPHY - COLON CA SCREENING 1950 Colorectal Cancer Screening 1950 FIT - COLON CA SCREENING 1951 FLEX SIG - COLON CA SCREENING 1951 LIPID TESTING 1950 MEDICARE AWV 12 MONTHS 1950 HEPATITIS C SCREENING 06/18/1969 DTAP/TDAP/TD VACCINES (1 - Tdap) 1970 PNEUMOCOCCAL VACCINE 50+ (1 of 1 - PCV) 2001 ZOSTER VACCINE (1 of 2) 2001 COVID-19 VACCINE ( - 2023-2 5 season) 2024 INFLUENZA VACCINE (#1) 2024 DEPRESSION SCREENING 09/24/2024 Respiratory Syncytial Virus (RSV) Vaccine Pt: or over 60 yrs (1 - 1-dose 75+ series) 2026 HEPATITIS B VACCINE Aged Out No longe r eligible based on patient's age to complete this topic HIB VACCINE Aged Out No longer eligi ble based on patient's age to complete this topic HPV VACCINE Aged Out No longer eligi ble based on patient's age to complete this topic MENINGOCOCCAL (Group B) VACCINE Aged Out No longer eligible based on patient's age to complete this topic MENINGOCOCCAL VACCINE Aged Out No margaret yaritza eligible based on patient's age to complete this topic
--- OUTSIDE RECORDS SUMMARY | 2024-11-19 16:59 | XMS_ITS | Encounter Summary ---
Author Organization [facility] Address [address] [place] [address] Care Team Providers Care Email Marketing Specialist Name Role Phone Unavailable Primary Care Provider Unavailabl e Encounter Details Date Type Department Care Team (Late st Contact Info) Description 08/07/2019 Lab Requisition [facility] DermPath Lab [address] [facility], [facility] [place] [address] Mirtha Wells MD [address] [facility] 3 [place] [address] Social History Tobacco Use Types Packs/Day Years Used Date Smoking Tobacco: Never Assessed Sex and Gender Information Value Date Recorded Sex Assigned at Not on file Gender Identity Not on file Sexual Orientation Not on file documented as of this encounter Plan of Treatment Not on file documented as of this encounter Procedures Procedure Name Priority Date/Time Associated Diagnosis Comments DERMATOPATHOLOGY Routine 08/06/2019 12:0 0 AM LUMP INSPECTOR documented in this encounter Results * DERMATOPATHOLOGY (08/06/2019 12:00 AM LUMP INSPECTOR) Case Report Dermatopathology Report Case: [id number] Authorizing Provider: Mirtha Wells MD Collected: 08/06/2019 12:00 AM Ordering Location: [facility] DermPath Lab Received: 08/07/2019 07:00 AM Pathologist: Rex Berger MD Specimen: Skin, left cheek 9 12:32 PM LUMP INSPECTOR DERMATOPATHOLOGY LABORATORY Final Diagnosis Specimen A. SKIN, left cheek: SQUAMOUS CELL CARCINOMA, WELL DIFFERENTIATED (C44.329) 9 12:32 PM LUMP INSPECTOR DERMATOPATHOLOGY LABORATORY Clinical History R/O SCC, irritated. 12:32 PM [facility] DERMATOPATHOLOGY LABORATORY Gross Description Specimen A: Received is one formalin filled container labeled with the patient's name and designated left cheek. The specimen consists of a shave measuring 5o1k2pi. Jar 0. 12:32 PM [facility] DERMATOPATHOLOGY LABORATORY Microscopic Description Specimen A. SKIN, left cheek: Arising in the epidermis and extending into the dermis there are irregularly shaped aggregates of keratinocytes showing evidence of premature cornification. 12:32 PM [facility] DERMATOPATHOLOGY LABORATORY Disclaimer An external and internal positive and negative controls are appropriate for the histochemical, immunohistochemical and immunofluorescence stain(s) in this case (if any), except where stated explicitly. The performance characteristics of the stain(s) cited in this report were developed and its performance characteristic determined by the Dermatopathology Laboratory at [facility], directed by Dr. Jenny Berger. These tests need not be, and therefore are not, approved by the [place] Food and Drug Administration. The tests are used for clinical purposes. Billing Codes Specimen Charges Stain Charges 99598 1 9 12:32 PM [facility] DERMATOPATHOLOGY LABORATORY Embedded Images 12:32 PM [facility] DERMATOPATHOLOGY LABORATORY Pathology/Cytolog y TISSUE SPECIMEN FROM SKIN / Unknown 08/06/2019 08/07/2019 7:00 AM LUMP INSPECTOR Mirtha Wells MD LAB - PATHOLOGY/CYT OLOGY ORDERABLES DERMATOPATHOLOGY LABORATORY [facility] - Department of Dermatology [facility] 5th Floor Lab B [place], [place] [address] [place] [address] documented in this encounter Visit Diagnoses Not on filedocumented in this encounter
--- OUTSIDE RECORDS SUMMARY | 2024-11-19 16:59 | XMS_ITS | Encounter Summary ---
Author Organization [facility] Address [address] [place] [address] Care Team Providers Care Program Therapist Name Role Phone Unavailable Primary Care Provider Unavailabl e Encounter Details Date Type Department Care Team (Late st Contact Info) Description 04/02/[address] [facility] DermPath Lab [address] [facility] [place] [address] Mirtha Wells MD [address] [facility] 3 [place] [address] Social History Tobacco Use Types Packs/Day Years Used Date Smoking Tobacco: Never Assessed Sex and Gender Information Value Date Recorded Sex Assigned at Not on file Gender Identity Not on file Sexual Orientation Not on file documented as of this encounter Plan of Treatment Not on file documented as of this encounter Procedures Procedure Name Priority Date/Time Associated Diagnosis Comments DERMATOPATHOLOGY Routine 04/01/2020 12:0 0 AM CDT documented in this encounter Results * DERMATOPATHOLOGY (04/01/2020 12:00 AM CDT) Case Report Dermatopathology Report Case: [id number] Authorizing Provider: Mirtha Wells MD Collected: 04/01/2020 12:00 AM Ordering Location: [facility] Care DermPath Lab Received: 04/02/2020 02:01 PM Pathologist: Carmel Strong MD Specimen: Skin, right inf cheek 0 12:55 PM CDT DERMATOPATHOLOGY LABORATORY Final Diagnosis Specimen A. SKIN, right inf cheek: BENIGN VERRUCOUS KERATOSIS, INFLAMED (L82.1) 0 12:55 PM CDT DERMATOPATHOLOGY LABORATORY Clinical History R/O SCC vs VV, irritated. 0 12:55 PM CDT DERMATOPATHOLOGY LABORATORY Gross Description Specimen A: Received is one formalin filled container labeled with the patient's name and designated right inf cheek. The specimen consists of a shave measuring 56d8b1ik, bisected. Jar 0. 0 12:55 PM CDT DERMATOPATHOLOGY LABORATORY Microscopic Description Specimen A. SKIN, right inf cheek: Sections show hyperkeratosis, papillomatosis, hypergranulosis, and acanthosis. Inflammatory cells are present within the dermis. These histological findings can be seen in a verruca vulgaris or a seborrheic keratosis. 0 12:55 PM CDT DERMATOPATHOLOGY LABORATORY Disclaimer An external and internal positive and negative controls are appropriate for the histochemical, immunohistochemical and immunofluorescence stain(s) in this case (if any), except where stated explicitly. The performance characteristics of the stain(s) cited in this report were developed and its performance characteristic determined by the Dermatopathology Laboratory at [facility], directed by Dr. Jenny Berger. These tests need not be, and therefore are not, approved by the [place] Food and Drug Administration. The tests are used for clinical purposes. Billing Codes Specimen Charges Stain Charges 86212 1 0 12:55 PM CDT DERMATOPATHOLOGY LABORATORY Embedded Images 0 12:55 PM CDT DERMATOPATHOLOGY LABORATORY Pathology/Cytolog y TISSUE SPECIMEN FROM SKIN / Unknown 04/01/2020 04/02/2020 2:01 PM CDT Mirtha Wells MD LAB - PATHOLOGY/CYT OLOGY ORDERABLES DERMATOPATHOLOGY LABORATORY [facility] - Department of Dermatology [facility]/[address] [phone] documented in this encounter Visit Diagnoses Not on filedocumented in this encounter
--- OUTSIDE RECORDS SUMMARY | 2024-11-19 16:59 | XMS_ITS | Encounter Summary ---
Author Organization [facility] Address [address] [facility] [place] [address] Care Team Providers Care Expander Machine Operator Name Role Phone Unavailable Primary Care Provider Unavailabl e Encounter Details Date Type Department Care Team (Late st Contact Info) Description 05/29/2024 Lab Requisition [facility] - DermPath Lab [address] [facility] [place] [address] Pina Smith MD [address] [facility] 3 [place] [address] Social History Tobacco Use Types Packs/Day Years Used Date Smoking Tobacco: Never Assessed Sex and Gender Information Value Date Recorded Sex Assigned at Not on file Gender Identity Not on file Sexual Orientation Not on file documented as of this encounter Plan of Treatment Not on file documented as of this encounter Procedures Procedure Name Priority Date/Time Associated Diagnosis Comments DERMATOPATHOLOGY Routine 05/29/2024 9:28 AM CDT documented in this encounter Results * DERMATOPATHOLOGY (05/29/2024 9:28 AM CDT) Case Report Dermatopathology Report Case: [id number] Authorizing Provider: Pina Smith MD Collected: 05/29/2024 09:28 AM Ordering Location: [facility] Physician [facility] - Received: 05/30/2024 09:37 AM DermPath Lab Pathologist: Marilyn Hernandez MD Specimen: Skin, right back 12:36 PM CDT DERMATOPATHOLOGY LABORATORY Final Diagnosis Specimen A. 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 The specimen consists of a shave biopsy measuring 01v18x6 mm. Jar 0. 12:36 PM CDT DERMATOPATHOLOGY LABORATORY Microscopic Description Specimen A. SKIN, right back: The epidermis shows parakeratosis, full thickness disorderly maturation of keratinocytes, mitoses at different levels, and dyskeratotic cells. 12:36 PM CDT DERMATOPATHOLOGY LABORATORY Disclaimer An external and internal positive and negative controls are appropriate for the histochemical, immunohistochemical and immunofluorescence stain(s) in this case (if any), except where stated explicitly. The performance characteristics of the stain(s) cited in this report were developed and its performance characteristic determined by the Dermatopathology Laboratory at [facility], directed by Dr. Jenny Berger. These tests need not be, and therefore are not, approved by the [place] Food and Drug Administration. The tests are used for clinical purposes. Billing Codes Specimen Charges Stain Charges 44456 1 12:36 PM CDT DERMATOPATHOLOGY LABORATORY Embedded Images 12:36 PM CDT DERMATOPATHOLOGY LABORATORY Pathology/Cytolo gy TISSUE SPECIMEN FROM SKIN / Unknown 05/29/2024 9:28 AM CDT 05/30/2024 9:37 AM CDT Pina Smith MD LAB - PATHOLOGY/CYTO LOGY ORDERABLES DERMATOPATHOLOGY LABORATORY [facility] - Department of Dermatology [address], [address] [phone] documented in this encounter Visit Diagnoses Not on filedocumented in this encounter
--- OUTSIDE RECORDS SUMMARY | 2024-11-19 16:59 | XMS_ITS | Encounter Summary ---
Author Organization [facility] Address [address] [facility] [place] [address] Care Team Providers Care Guest Service Manager Name Role Phone Unavailable Primary Care Provider Unavailabl e Encounter Details Date Type Department Care Team (Late st Contact Info) Description 06/28/2023 Lab Requisition [facility] - DermPath Lab [address] [facility], [facility] [place] [address] Pina Smith MD [address] [facility] 3 [place] [address] Social History Tobacco Use Types Packs/Day Years Used Date Smoking Tobacco: Never Assessed Sex and Gender Information Value Date Recorded Sex Assigned at Not on file Gender Identity Not on file Sexual Orientation Not on file documented as of this encounter Plan of Treatment Not on file documented as of this encounter Procedures Procedure Name Priority Date/Time Associated Diagnosis Comments DERMATOPATHOLOGY Routine 06/28/2023 11:2 5 AM CDT documented in this encounter Results * DERMATOPATHOLOGY (06/28/2023 11:25 AM CDT) Case Report Dermatopathology Report Case: [id number] Authorizing Provider: Pina Smith MD Collected: 06/28/2023 11:25 AM Ordering Location: [facility] DermPath Lab Received: 06/29/2023 08:03 AM Pathologist: Sakina Hopper MD Specimen: Skin, abdomen 3 4:56 PM CDT DERMATOPATHOLOGY LABORATORY Final Diagnosis Specimen A. SKIN, abdomen: DERMAL SCAR RESIDUAL SQUAMOUS CELL CARCINOMA NOT IDENTIFIED (L90.5) 3 4:56 PM CDT DERMATOPATHOLOGY LABORATORY Clinical History R/O BX Proven SCCIS 3 4:56 PM CDT DERMATOPATHOLOGY LABORATORY Gross Description Specimen A: Received is one formalin filled container labeled with the patient's name and designated abdomen. The specimen consists of a non-oriented ellipse of skin measuring 61u00e1 mm. The margin is inked green. The 12 o'clock and 6 o'clock tips are submitted in cassette 1. The remainder of the ellipse is serially sectioned and submitted in cassette 2 - 4. Jar 0. 3 4:56 PM CDT DERMATOPATHOLOGY LABORATORY Microscopic Description Specimen A. SKIN, abdomen: There are fibroblasts and collagen bundles oriented parallel to the skin surface. There are elongated blood vessels, some of which are oriented perpendicular to the skin surface. No residual squamous cell carcinoma is identified. 3 4:56 PM CDT DERMATOPATHOLOGY LABORATORY Disclaimer An external and internal positive and negative controls are appropriate for the histochemical, immunohistochemical and immunofluorescence stain(s) in this case (if any), except where stated explicitly. The performance characteristics of the stain(s) cited in this report were developed and its performance characteristic determined by the Dermatopathology Laboratory at [facility], directed by Dr. Jenny Berger. These tests need not be, and therefore are not, approved by the [place] Food and Drug Administration. The tests are used for clinical purposes. Billing Codes Specimen Charges Stain Charges 97553 1 3 4:56 PM CDT DERMATOPATHOLOGY LABORATORY Embedded Images 3 4:56 PM CDT DERMATOPATHOLOGY LABORATORY Pathology/Cytolo gy TISSUE SPECIMEN FROM SKIN / Unknown 06/28/2023 11:25 AM CDT 06/29/2023 8:03 AM CDT Pina Smith MD LAB - PATHOLOGY/CYTO LOGY ORDERABLES DERMATOPATHOLOGY LABORATORY [facility] - Department of Dermatology [address], [address] [phone] documented in this encounter Visit Diagnoses Not on filedocumented in this encounter
--- OUTSIDE RECORDS SUMMARY | 2024-11-19 16:59 | XMS_ITS | Encounter Summary ---
Author Organization [facility] Address [address] [place] [address] Care Team Providers Care Aluminum Fabrication Supervisor Name Role Phone Unavailable Primary Care Provider Unavailabl e Encounter Details Date Type Department Care Team (Late st Contact Info) Description 05/23/2018 Lab Requisition [facility] Care DermPath Lab [address] [facility] [place] [address] Mirtha Wells MD [address] [facility] 3 [place] [address] Social History Tobacco Use Types Packs/Day Years [...] Associated Diagnosis Comments DERMATOPATH TECHNICAL REPORT Routine 05/22/2018 12:00 AM CDT documented in this encounter Results * DERMATOPATH TECHNICAL REPORT (05/22/2018 12:00 AM CDT) Case Report Dermatopathology Report Case: [id number] Authorizing Provider: Mirtha Wells MD Collected: 05/22/2018 12:00 AM Pathologist: Rex Berger MD Received: 05/23/2018 06:16 AM Specimen: Skin, left neck behind ear 8 1:19 PM CDT DERMATOPATHOLOGY LABORATORY Clinical History Bx proven SCC mod diff present at margins. Check margins. Previous Bx: [id number]. 8 1:19 PM CDT DERMATOPATHOLOGY LABORATORY Gross Description Specimen A: Received is one formalin filled container labeled with the patient's name and designated left neck behind ear.The specimen consists of an ellipse measuring 52f57i0jg and is oriented with the notch at the 3 o'clock position labeled, not on the requisition. The epidermal surface consists of a centrally located 6x5mm previous biopsy site. The 12 to 6 o'clock margin is inked green. The 6 o'clock to 12 o'clock margin is inked black. The 12 o'clock tip is submitted in cassette 1. The 6 o'clock tip is submitted in cassette 2. The remainder of the ellipse is serially sectioned and submitted in cassettes 3-5. Jar 0. [facility] Dermatopathology Laboratory performed the technical component only. 1:19 PM CDT DERMATOPATHOLOGY LABORATORY Embedded Images 1:19 PM T DERMATOPATHOLOGY LABORATORY DISCLAIMER An external and internal positive and negative controls are appropriate for the histochemical, immunohistochemical and immunofluorescence stain(s) in this case (if any), except where stated explicitly. The performance characteristics of the stain(s) cited in this report were developed and its performance characteristic determined by the Dermatopathology Laboratory at [facility]. These tests need not be, and therefore are not, approved by the [place] Food and Drug Administration. The tests are used for clinical purposes. 1:19 PM T DERMATOPATHOLOGY LABORATORY Pathology/Cytolog y TISSUE SPECIMEN FROM SKIN / Unknown 05/22/2018 05/23/2018 6:16 AM CDT Mirtha Wells MD LAB - PATHOLOGY/CYT OLOGY ORDERABLES DERMATOPATHOLOGY LABORATORY [facility] - Department of Dermatology [address] [place] [address], 5th Floor Lab [address] [phone] documented in this encounter Visit Diagnoses Not on filedocumented in this encounter
== END 2024-11-19 14:38 | disposition home or self-care (01) ==
PROVIDERS: PCP Registered Nurse; Visit Provider Registered Nurse
DX: I65.23 Occlusion and stenosis of bilateral carotid arteries (principal); R42 Dizziness and giddiness
CPT/HCPCS: 93880

== ENCOUNTER 2024-12-26 09:44 | Outpatient (CLI) | payer MEDICARE, OTHER, SELFPAY ==
--- NOTE | ~2024-12-26 | CT_ITS ---
EXAMINATION: CT chest abdomen pelvis w con DATE: 12/26/2024 10:13 INDICATION: Weight loss. Prior Hodgkin's lymphoma. TECHNIQUE: Computed tomography (CT) of the chest, abdomen, and pelvis was performed with 100 mL Omnip aque-350 intravenous contrast. Automated exposure control and iterative reconstruction technique were employed. The dose-length product was 635.36 mGy-cm. COMPARISON: None FINDINGS: CHEST CT: There is bilateral paramediastinal reticular and groundglass opacities with associated architectural distortion volume loss in the bilateral upper lobes, right middle lobe and superior segments of the l ower lobes with pattern consistent with radiation fibrosis likely for reported prior Hodgkin's lympho ma. Small calcified right upper lobe nodule consistent with old granulomatous disease. No suspicious pulmonary nodules, pneumonia, pulmonary edema or pleural effusion. Heart size is normal. No pericardi al effusion. Thoracic aorta is normal in caliber with no hematoma significant atherosclerotic plaque and no dissection. No pathologically enlarged thoracic lymphadenopathy. Small sliding-type hiatal her jose. Moderate thoracic spondylosis with chronic appearing mild anterior wedging of a few mid thoracic vertebral bodies. ABDOMEN/PELVIS CT: Liver, gallbladder, spleen, pancreas and bilateral adrenal glands are normal. There are few bilateral small renal cysts the largest on the left measuring 1.4 cm. 3 mm nonobstructing stone at a lower tyler e calyx of the right kidney. Moderate sigmoid diverticulosis without adjacent from trace stranding to suggest diverticulitis. Small bowel and appendix are normal. Prostatomegaly. Bladder is normal. No f ree intraperitoneal gas or fluid. No pathologically enlarged abdominal or pelvic lymphadenopathy. Mod erate lower lumbar spondylosis. IMPRESSION: 1. 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 No pathologically enlarged lymphadenopathy in the chest, abdomen or pelvis or other lesions frantz picious for primary or metastatic malignancy. 2. Nonobstructing 3 mm right renal stone. 3. Prominent sigmoid diverticulosis. 4. Prostatomegaly. Reviewed, dictated and finalized at location A. IMPRESSION: 1. 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 No pathologically enlarged lymphadenopathy in the c hest, abdomen or pelvis or other lesions suspicious for primary or metastatic m alignancy. 2. Nonobstructing 3 mm right renal stone. 3. Prominent sigmoid diverticulosis. 4. Prostatomegaly.
[2024-12-26 10:09] LABS: Estimated Glomerular Filt Rate > 60
--- OUTSIDE RECORDS SUMMARY | 2024-12-26 10:11 | XMS_ITS | Encounter Summary ---
Author Organization [facility] Address [address] [facility] [place] [address] Care Team Providers Care Alpaca Farmer Name Role Phone Unavailable Primary Care Provider Unavailabl e Encounter Details Date Type Department Care Team (Late st Contact Info) Description 04/30/2023 Lab Requisition [facility] - DermPath Lab [address] [facility], [place] [address] Pina Smith MD [address] [facility] 3 [place] [address] Social History Tobacco Use Types Packs/Day Years [...] AM CDT) Case Report Dermatopathology Report Case: [id number] Authorizing Provider: Pina Smith MD Collected: 04/30/2023 08:20 AM Ordering Location: [facility] DermPath Lab Received: 04/30/2023 04:46 PM Pathologist: Saikna Hopper MD Specimens: A) - Skin, left cheek B) - Skin, abdomen 12:35 PM CDT DERMATOPATHOLOGY LABORATORY Final Diagnosis Specimen A. 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 Jar 0. 12:35 PM [facility] DERMATOPATHOLOGY LABORATORY Microscopic Description Specimen A. SKIN, [...] characteristic determined by the Dermatopathology Laboratory at [facility], directed by Dr. Jenny Berger. These tests need not be, and therefore are not, approved by the [place] Food and Drug Administration. The tests are used for clinical purposes. Billing Codes Specimen Charges Stain Charges 31278 03315 1 1 3 12:35 PM CDT DERMATOPATHOLOGY LABORATORY Embedded Images 12:35 PM CDT DERMATOPATHOLOGY LABORATORY Pathology/Cytology TISSUE SPECIMEN FROM SKIN / Unknown 04/30/2023 8:20 AM CDT 04/30/2023 4:46 PM CDT Miscellaneous samples (specimen) TISSUE SPECIMEN FROM SKIN / Unknown 04/30/2023 8:20 AM CDT 04/30/2023 4:46 PM CDT Pina Smith MD LAB - PATHOLOGY/CYTO LOGY ORDERABLES DERMATOPATHOLOGY LABORATORY [facility] - Department of Dermatology [facility] [address] [place] [address], [address] [phone] documented in this encounter Visit Diagnoses Not on filedocumented in this encounter
--- OUTSIDE RECORDS SUMMARY | 2024-12-26 10:11 | XMS_ITS | Encounter Summary ---
Author Organization [facility] Address [address] [facility] [place] [address] Care Team Providers Care Nutrition Consultant Name Role Phone Unavailable Primary Care Provider Unavailabl e Encounter Details Date Type Department Care Team (Late st Contact Info) Description 06/28/2023 Lab Requisition [facility] - DermPath Lab [address] [facility] [place] [address] Pina Smith MD [address] [facility] 3 [place] [address] Social History Tobacco Use Types Packs/Day Years [...] AM CDT) Case Report Dermatopathology Report Case: [id number] Authorizing Provider: Pina Smith MD Collected: 06/28/2023 11:25 AM Ordering Location: [facility] DermPath Lab Received: 06/29/2023 08:03 AM Pathologist: [...] of a non-oriented ellipse of skin measuring 18l88v0 mm. The margin is inked green. The [...] characteristic determined by the Dermatopathology Laboratory at [facility], directed by Dr. Jenny Berger. These tests need not be, and therefore are not, approved by the [place] Food and Drug Administration. The tests are used for clinical purposes. Billing Codes Specimen Charges Stain Charges 17267 1 3 4:56 PM CDT DERMATOPATHOLOGY LABORATORY Embedded Images 3 4:56 PM CDT DERMATOPATHOLOGY LABORATORY Pathology/Cytolo gy TISSUE SPECIMEN FROM SKIN / Unknown 06/28/2023 11:25 AM CDT 06/29/2023 8:03 AM CDT Pina Smith MD LAB - PATHOLOGY/CYTO LOGY ORDERABLES DERMATOPATHOLOGY LABORATORY [facility] - Department of Dermatology [address], [address] [phone] documented in this encounter Visit Diagnoses Not on filedocumented in this encounter
--- OUTSIDE RECORDS SUMMARY | 2024-12-26 10:11 | XMS_ITS | Encounter Summary ---
Author Organization [facility] Address [address] [place] [address] Care Team Providers Care Right Of Way Worker Name Role Phone Unavailable Primary Care Provider Unavailabl e Encounter Details Date Type Department Care Team (Late st Contact Info) Description 08/07/2019 Lab Requisition [facility] DermPath Lab [address] [facility] [place] [address] Mirtha Wells MD [address] [facility] [address] [place] [address] Social History Tobacco Use Types Packs/Day Years [...] Comments DERMATOPATHOLOGY Routine 08/06/2019 12:0 0 AM PROGRAM COORDINATOR EXECUTIVE EDUCATION documented in this encounter Results * DERMATOPATHOLOGY (08/06/2019 12:00 AM PROGRAM COORDINATOR EXECUTIVE EDUCATION) Case Report Dermatopathology Report Case: [id number] Authorizing Provider: Mirtha Wells MD Collected: 08/06/2019 12:00 AM Ordering Location: [facility] DermPath Lab Received: 08/07/2019 07:00 AM Pathologist: Rex Berger MD Specimen: Skin, left cheek 9 12:32 PM PROGRAM COORDINATOR EXECUTIVE EDUCATION DERMATOPATHOLOGY LABORATORY Final Diagnosis Specimen A. SKIN, left cheek: SQUAMOUS CELL CARCINOMA, WELL DIFFERENTIATED (C44.329) 9 12:32 PM PROGRAM COORDINATOR EXECUTIVE EDUCATION DERMATOPATHOLOGY LABORATORY Clinical History R/O SCC, irritated. 12:32 PM [facility] DERMATOPATHOLOGY LABORATORY Gross Description Specimen A: Received is one formalin filled container labeled with the patient's name and designated left cheek. The specimen consists of a shave measuring [id number]. Jar 0. 12:32 PM [facility] DERMATOPATHOLOGY LABORATORY Microscopic Description Specimen A. SKIN, left cheek: Arising in the epidermis and extending into the dermis there are irregularly shaped aggregates of keratinocytes showing evidence of premature cornification. 12:32 PM [facility] DERMATOPATHOLOGY LABORATORY Disclaimer An external and internal positive and negative controls are appropriate for the histochemical, immunohistochemical and immunofluorescence stain(s) in this case (if any), except where stated explicitly. The performance characteristics of the stain(s) cited in this report were developed and its performance characteristic determined by the Dermatopathology Laboratory at [facility], directed by Dr. Jenny Berger. These tests need not be, and therefore are not, approved by the [place] Food and Drug Administration. The tests are used for clinical purposes. Billing Codes Specimen Charges Stain Charges 95448 1 9 12:32 PM [facility] DERMATOPATHOLOGY LABORATORY Embedded Images 12:32 PM [facility] DERMATOPATHOLOGY LABORATORY Pathology/Cytolog y TISSUE SPECIMEN FROM SKIN / Unknown 08/06/2019 08/07/2019 7:00 AM PROGRAM COORDINATOR EXECUTIVE EDUCATION Mirtha Wells MD LAB - PATHOLOGY/CYT OLOGY ORDERABLES DERMATOPATHOLOGY LABORATORY [facility] - Department of Dermatology [facility] [facility] 5th Floor Lab [address] [place], [place] [id number] [place] [address] documented in this encounter Visit Diagnoses Not on filedocumented in this encounter
--- OUTSIDE RECORDS SUMMARY | 2024-12-26 10:11 | XMS_ITS | Clinical Summary ---
Author Organization [facility] Address [address] [place] [address] Care Team Providers Care Websphere Message Broker Developer Name Role Phone Unavailable Primary Care Provider Unavailabl e Source Comments [facility],non-owned Affiliates and Associated Physician Practices is amultiple site organization consisting of ambulatory clinics and hospital sitesin [place], [place], [place] and [place]. This disclosure is being madepursuant to the Care Everywhere program and may not contain all information available regarding this patient. Last updated 18.[facility] [employer] Social History Tobacco Use Types Packs/Day Years [...] to complete this topic MENINGOCOCCAL (Group B) VACC INE SHARED DECISION-MAKING Aged Out No longer eligibl e based on patient's age to complete this topic MENINGOCOCCAL GROUPS A/C/Y/W VACCINE Aged Out No longer eligible b ased on patient's age to complete this topic
--- OUTSIDE RECORDS SUMMARY | 2024-12-26 10:11 | XMS_ITS | Encounter Summary ---
Author Organization [facility] Address [address] [place] [address] Care Team Providers Care Shipping Supervisor Name Role Phone Unavailable Primary Care Provider Unavailabl e Encounter Details Date Type Department Care Team (Late st Contact Info) Description 04/02/[address] [facility] DermPath Lab [address] [facility] [place] [address] Mirtha Wells MD [address] [facility] 3 [place] [address] Social History Tobacco Use Types Packs/Day Years [...] AM CDT) Case Report Dermatopathology Report Case: [id number] Authorizing Provider: Mirtha Wells MD Collected: 04/01/2020 12:00 AM Ordering Location: [facility] DermPath Lab Received: 04/02/2020 02:01 [...] The specimen consists of a shave measuring [id number], bisected. Jar 0. 0 12:55 PM CDT [...] characteristic determined by the Dermatopathology Laboratory at [facility], directed by Dr. Jenny Berger. These tests need not be, and therefore are not, approved by the [place] Food and Drug Administration. The tests are used for clinical purposes. Billing Codes Specimen Charges Stain Charges 33853 1 0 12:55 PM CDT DERMATOPATHOLOGY LABORATORY Embedded Images 0 12:55 PM CDT DERMATOPATHOLOGY LABORATORY Pathology/Cytolog y TISSUE SPECIMEN FROM SKIN / Unknown 04/01/2020 04/02/2020 2:01 PM CDT Mirtha Wells MD LAB - PATHOLOGY/CYT OLOGY ORDERABLES DERMATOPATHOLOGY LABORATORY [facility] - Department of Dermatology [facility]/[address] [phone] documented in this encounter Visit Diagnoses Not on filedocumented in this encounter
--- OUTSIDE RECORDS SUMMARY | 2024-12-26 10:11 | XMS_ITS | Encounter Summary ---
Author Organization [facility] Address [address] [place] [address] Care Team Providers Care Associate Director Of Nursing Name Role Phone Unavailable Primary Care Provider Unavailabl e Encounter Details Date Type Department Care Team (Late st Contact Info) Description 05/23/2018 Lab Requisition [facility] Care DermPath Lab [address] [facility] [facility] [place] [address] Mirtha Wells MD [address] [facility] [address] [place] [address] Social History Tobacco Use Types Packs/Day Years [...] AM CDT) Case Report Dermatopathology Report Case: [id number] Authorizing Provider: Mirtha Wells MD Collected: 05/22/2018 12:00 AM Pathologist: Rex Berger MD Received: 05/23/2018 06:16 AM Specimen: Skin, left neck behind ear 8 1:19 PM CDT DERMATOPATHOLOGY LABORATORY Clinical History Bx proven SCC mod diff present at margins. Check margins. Previous Bx: [id number]. 8 1:19 PM CDT DERMATOPATHOLOGY LABORATORY Gross Description Specimen A: Received is one formalin filled container labeled with the patient's name and designated left neck behind ear.The specimen consists of an ellipse measuring [id number] and is oriented with the notch at [...] and submitted in cassettes 3-5. Jar 0. [facility] Dermatopathology Laboratory performed the technical component [...] characteristic determined by the Dermatopathology Laboratory at [facility]. These tests need not be, and therefore are not, approved by the [place] Food and Drug Administration. The tests are used for clinical purposes. 1:19 PM T DERMATOPATHOLOGY LABORATORY Pathology/Cytolog y TISSUE SPECIMEN FROM SKIN / Unknown 05/22/2018 05/23/2018 6:16 AM CDT Mirtha Wells MD LAB - PATHOLOGY/CYT OLOGY ORDERABLES DERMATOPATHOLOGY LABORATORY [facility] - Department of Dermatology [address] [place] [address], 5th Floor Lab [address] [phone] documented in this encounter Visit Diagnoses Not on filedocumented in this encounter
--- OUTSIDE RECORDS SUMMARY | 2024-12-26 10:11 | XMS_ITS | Clinical Summary ---
Author Organization [facility] Address [address] [place] [address] Care Team Providers Care Food Preparation Worker Name Role Phone Alaina Jennings HARINDERALFONZO Primary [...] at bedtime. 90 tablet 11 4 Active cetirizine (ZYRTEC) 10 MG tabletIndicatio ns:Seasonal allergies Take 1 tablet (10 mg total) by mouth daily. 90 tablet 1 4 Active Additional Information Patient not taking.Reported on 11/21/2024 guaiFENesin ER (MUCINEX) 600 MG 12 hr tablet Take 2 tablets (1,200 mg total) by mouth 2 (two) times daily. Active tamsulosin (FLOMAX) 0.4 MG CapIndications: Lower urinary tract symptoms (LUTS) Take 1 capsule (0.4 mg total) by mouth daily. 90 capsule 3 4 Active Additional Information Patient not taking.Reported on 11/21/2024 triamcinolone acetonide (NASACORT) 55 MCG/ACT nasal inhalerIndicati ons:Dizziness,D ysfunction of left eustachian tube 2 sprays by Each Nostril route daily. Use for 30 days to see if this helps your dizziness. 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 Peripheral neuropathy 11/28/2017 Glaucoma 08/09/2017 Increased glucose level 09/30/2014 Knee pain 11/28/2013 Lower back pain 05/28/2013 Cervical radiculopathy 04/01/2013 Hearing loss 09/28/2012 Hypogonadism, testicular 09/27/2012 Hyperlipidemia 05/13/2012 Resolved Problems Problem Noted Date Diagnosed Date Resolved Date Pre-operative clearance 01/19/2022 05/0 10/2021 Screening PSA (prostate specific antigen) 08/09/2017 06/04/2020 Encounters Date Type Department Care Team Description 12/22/2024 Telephone [facility] Internal [address] [phone] Alaina Jennings APNP Information 11/21/2024 12:00 PM ORNAMENTAL MACHINE OPERATOR Office Visit [facility] Internal [address] [phone] Gaston Hirsch P, DO Dizziness 11/21/2024 Travel 11/21/2024 Telephone [facility] Internal [address] [phone] Alaina Jennings APNP Advice; Information 11/19/2024 Scan [employer] INFO SRVCS Scanned, [facility] Vascular Lab Study (SCAN) 11/12/2024 Telephone [facility] Internal [address] [phone] Alaina Jennings APNP Lab Results; Results (US carotid duplex) 11/06/2024 7:40 AM ORNAMENTAL MACHINE OPERATOR Laboratory Only [facility] Family & Internal Medicine - [address] [phone] Alaina Jennings APNP 11/05/2024 9:00 AM ORNAMENTAL MACHINE OPERATOR Office Visit [facility] Internal [facility] - [address] [phone] Alaina Jennings APNP Weight Loss (Pt c/o decreased appetite and weight loss.); Dizziness 11/05/2024 Travel 10/13/2024 1:00 PM ORNAMENTAL MACHINE OPERATOR [facility] [address], [address] [place] [address] Kel Cummings MD Follow Up 10/13/2024 Travel from Last 3 Months Immunizations Name Administration Dates Next Due Fluarix (IIV4) 07/10/2019 Fluzone High Dose - >Age 65 (Prefilled Syringe) 07/10/2023,06/28/2022,07/05/2021, 018,09/11/2017 Influenza Adult (Generic) 06/04/2020,,06/18/2018, 017 MODERNA COVID-19 (12+), MRNA , LNP-S, PF, 50 MCG/0.5 ML (SPIKEVAX) 07/10/2023 MODERNA COVID-19 ([employer] JAMSHID), MRNA, LNP-S, PF, 50 MCG/ [...] Information Value Date Recorded Sex Assigned at Male 11/21/2024 3:24 PM ORNAMENTAL MACHINE OPERATOR Legal Sex Male 4:21 PM CDT Gender Identity Male 09/07/2021 8:53 PM ORNAMENTAL MACHINE OPERATOR Sexual Orientation Straight 11/21/2024 3: 24 PM ORNAMENTAL MACHINE OPERATOR Last Filed Vital Signs Vital Sign Reading Time Taken Comments Blood Pressure 110/58 11/21/2024 11:56 AM ORNAMENTAL MACHINE OPERATOR Pulse 72 11/21/2024 11:56 AM ORNAMENTAL MACHINE OPERATOR Temperature 36.3 C (97.3 F) 11/21/2024 11:56 AM ORNAMENTAL MACHINE OPERATOR Respiratory Rate 16 11/21/2024 11:56 AM ORNAMENTAL MACHINE OPERATOR Oxygen Saturation 97% 11/21/2024 11:56 AM ORNAMENTAL MACHINE OPERATOR Inhaled Oxygen Concentration - - Weight 76.7 kg (169 lb 1.6 oz) 11/21/2024 11:56 AM ORNAMENTAL MACHINE OPERATOR Height 177.8 cm (5' 10 ) 11/21/2024 11:56 AM ORNAMENTAL MACHINE OPERATOR Body Mass Index 24.26 11/21/2024 11:56 AM ORNAMENTAL MACHINE OPERATOR Plan of Treatment Upcoming Encounters Date Type Department Care Team (Late st Contact Info) Description 04/13/2025 1:00 PM CDT Office Visit [facility] - [address], [address] [place] [phone] Kel Cummings MD [address] [place] [address] Health Maintenance Due Date Last Done Comments Pneumococcal Vaccine: 65+ Years (1 of 1 - PCV) 2016 COVID-19 Vaccine (2023- season) 2024 07/10/2023, 06/28/2022, 02/15/2022, Additional history exists DTaP, Tdap and Td [...] 07/04/2021 Hepatitis C Completed 03/06/2022 PHQ-2 (Physician [place]) Completed 11/05/2024 Meningococcal B Vaccine Aged Out No l onger eligible based on patient's age to complete this topic Meningococcal Vaccine Aged Out No margaret yaritza eligible based on patient's age to complete this topic RSV Immunizations Under 20 Months Aged Out No longer eligible based on patient's age to complete this topic Procedures Procedure Name Priority Date/Time Associated Diagnosis Comments URINALYSIS AUTO DIP Routine 11/21/2024 Dizziness VASCULAR LAB GENERIC (SCAN ORDER) 11/19/2024 COLLECTION VENOUS BLOOD VENIPUNCTURE Routine 11/06/2024 8:08 AM ORNAMENTAL MACHINE OPERATOR Dizziness Mixed hyperlipidemia Weight loss TSH W/REFLEX Routine 11/06/2024 8:08 AM ORNAMENTAL MACHINE OPERATOR Weight loss Mixed hyperlipidemia LIPID PANEL Routine 11/06/2024 8:08 AM ORNAMENTAL MACHINE OPERATOR Mixed hyperlipidemia CBC W/DIFF AUTOMATED Routine 11/06/2024 8:08 AM ORNAMENTAL MACHINE OPERATOR Dizziness COMPREHENSIVE METABOLIC PANEL Routine 11/06/2024 8:08 AM ORNAMENTAL MACHINE OPERATOR Dizziness ELECTROCARDIOGRAM (NON MIDMARK ACQUIRED) Routine 11/05/2024 9:46 AM ORNAMENTAL MACHINE OPERATOR Dizziness REMOVAL IMPACTED CERUMEN IRRIGATION/LAVAGE UNILAT Routine 11/05/2024 9:00 AM ORNAMENTAL MACHINE OPERATOR Impacted cerumen of right ear HEPATITIS C ANTIBODY W/RFX TO HCV RNA Routine 03/06/2022 12:34 PM CDT Need for hepatitis C screening test COLONOSCOPY Routine 07/04/2021 3:15 PM CDT from Last 3 Months or Most Recently Relevant to Health Maintenance Results * (ABNORMAL) URINALYSIS AUTO DIP (11/21/2024) COLOR (U) DARK YELLOW YELLOW [facility] TRANSPARENCY CLEAR [facility]AR [facility] GLUCOSE (U) NEGATIVE NEGATIVE MG/DL [facility] BILIRUBIN (U) 1+ (SMALL)(A) NEGATIVE [facility] KETONES MG/DL (U) 5 (TRACE)(A) NEGATIVE MG/DL [facility] SPECIFIC GRAVITY (U) 1.020 1.001 - 1.035 [facility] BLOOD (U) NEGATIVE NEGATIVE [facility] U PH 6.0 5.0 - 9.0 [facility] PROTEIN (U) 2+ (100)(A) NEGATIVE mg/dL [facility] UROBILINOGEN >=8.0(A) 0.2 - 1.0 EU/dL = mg/dL [facility] NITRITES NEGATIVE NEGATIVE MG/DL [facility] LEUKOCYTES (U) NEGATIVE NEGATIVE [facility]SO [facility] URINE SPECIMEN OBTAINED BY CLEAN CATCH PROCEDURE / Unknown 11/21/2024 us Gaston Hirsch DO URINE ORDERABLES Final R esult [facility] [address] [place] [address], [place] * VASCULAR LAB GENERIC (SCAN ORDER) (11/19/2024) 11/19/2024 us [facility] Scanned SCANNING Final Resu lt * TSH W/REFLEX (11/06/2024 8:08 AM ORNAMENTAL MACHINE OPERATOR) TSH 1.936 0.358 - 3.740 uIU/ML 11/06/2024 2:49 PM ORNAMENTAL MACHINE OPERATOR [facility] 11/06/2024 8:08 AM ORNAMENTAL MACHINE OPERATOR Alaina Toussaint Michaela [facility] Final Resul t [facility] [address] [place] [address], * (ABNORMAL) COMPREHENSIVE METABOLIC PANEL (11/06/2024 8:08 AM ORNAMENTAL MACHINE OPERATOR) SODIUM S/P/B 142 136 - 145 MMOL/L 11/06/2024 2:49 PM [facility] POTASSIUM S/P/B 4.7 3.5 - 5.1 MMOL/L 11/06/2024 2:49 PM [facility] CHLORIDE S/P/B 106 98 - 107 MMOL/L 11/06/2024 2:49 PM [facility] CO2 27.0 21 - 32 MMOL/L 11/06/2024 2:49 PM [facility] GLUCOSE 109(H) 70 - 99 MG/DL 11/06/2024 2:49 PM [facility] BUN 11 7 - 18 MG/DL 11/06/2024 2:49 PM [facility] CREATININE S/P/B 0.86 0.70 - 1.30 MG/DL 11/06/2024 2:49 PM [facility] CALCIUM S/P/B 8.5 8.4 - 10.5 MG/DL 11/06/2024 2:49 PM [facility] BILIRUBIN TOTAL S/P/B 0.9 0.2 - 1.0 MG/DL 11/06/2024 2:49 PM [facility] ALKALINE PHOSPHATASE S/P/B 68 45 - 115 U/L 11/06/2024 2:49 PM ORNAMENTAL MACHINE OPERATOR [facility] AST 24 15 - 37 U/L 11/06/2024 2:49 PM [facility] ALT 33 16 - 63 U/L 11/06/2024 2:49 PM ORNAMENTAL MACHINE OPERATOR [facility] TOTAL PROTEIN S/P/B 6.3(L) 6.4 - 8.2 G/DL 11/06/2024 2:49 PM ORNAMENTAL MACHINE OPERATOR [facility] ALBUMIN S/P/B 3.3(L) 3.4 - 5.0 G/DL 11/06/2024 2:49 PM ORNAMENTAL MACHINE OPERATOR [facility] ANION GAP 9.0 5 - 15 MMOL/L 11/06/2024 2:49 PM [facility] Comment:REFERENCE RANGE NOT ESTABLISHED OSMOLALITY (CALC) 294 MOSM/KG 025 2:49 PM [facility] Comment:REFERENCE RANGE NOT ESTABLISHED GFR ESTIMATE >90 >90 ML/MIN/1. 73 M2 11/06/2024 2:49 PM ORNAMENTAL MACHINE OPERATOR [facility] GFR NOTES GFR REFERENCE S: 11/06/2024 2:49 PM [facility] Comment: THE ESTIMATED GFR IS CALCULATED USING [...] FAILURE: <15 ml/min/1.73 m2 11/06/2024 8:08 AM ORNAMENTAL MACHINE OPERATOR [facility] Final Resul t [facility] [address] [place] [address], * LIPID PANEL (11/06/2024 8:08 AM ORNAMENTAL MACHINE OPERATOR) CHOLESTEROL 145 <200 MG/DL 11/06/2024 2:49 PM ORNAMENTAL MACHINE OPERATOR [facility] TRIGLYCERIDES 68 <150 MG/DL 11/06/2024 2:49 PM ORNAMENTAL MACHINE OPERATOR [facility] HDL 53 >40 MG/DL 11/06/2024 2:49 PM ORNAMENTAL MACHINE OPERATOR [facility] LDL-C 78 <100 MG/DL 11/06/2024 2:49 PM ORNAMENTAL MACHINE OPERATOR [facility] VLDL CALCULATION 14 5 - 28 MG/DL 11/06/2024 2:49 PM ORNAMENTAL MACHINE OPERATOR [facility] CHOL/HDL RATIO 2.7 0.0 - 4.0 11/06/2024 2:49 PM ORNAMENTAL MACHINE OPERATOR [facility] LDL/HDL 1.5 0.41 - 2.13 11/06/2024 2:49 PM ORNAMENTAL MACHINE OPERATOR [facility] NON HDL CHOLESTEROL 92 <140 MG/DL 11/06/2024 2:49 PM ORNAMENTAL MACHINE OPERATOR [facility] 11/06/2024 8:08 AM ORNAMENTAL MACHINE OPERATOR [facility] Final Resul t Performing Organization Address [facility] Co de Phone Number [place] [id number] [place] [address], * (ABNORMAL) CBC W/DIFF AUTOMATED (11/06/2024 8:08 AM ORNAMENTAL MACHINE OPERATOR) WBC 7.07 4.00 - 10.80 x10'3/uL 11/06/2024 2:04 PM ORNAMENTAL MACHINE OPERATOR [facility] RBC 4.38(L) 4.50 - 6.10 x10'6/uL 11/06/2024 2:04 PM [facility] HGB 13.3 13.0 - 18.0 G/DL 11/06/2024 2:04 PM [facility] HCT 41.9 37.0 - 52.0 % 11/06/2024 2:04 PM [facility] MCV 95.7 78.0 - 100.0 FL 11/06/2024 2:04 PM [facility] MCH 30.4 27.0 - 31.0 PG 11/06/2024 2:04 PM [facility] MCHC 31.7(L) 33.0 - 36.0 G/DL 11/06/2024 2:04 PM [facility] RDW 13.7 11.5 - 14.5 % 11/06/2024 2:04 PM [facility] PLT 177 150 - 350 x10'3/uL 11/06/2024 2:04 PM [facility] MPV 9.2 7.4 - 10.4 FL 11/06/2024 2:04 PM [facility] DIFFERENTIAL TYPE AUTOMATED DIFFERENTIAL 11/06/2024 2:04 PM [facility] NEUTROPHILS % 70.3 % 11/06/2024 2:04 PM [facility] LYMPHOCYTES % 20.8 % 11/06/2024 2:04 PM [facility] MONOCYTES % 7.2 % 11/06/2024 2:04 PM [facility] EOSINOPHILS % 1.3 % 11/06/2024 2:04 PM [facility] BASOPHILS % 0.3 % 11/06/2024 2:04 PM [facility] IMMATURE GRANS % 0.1 % 11/06/2024 2:04 PM [facility] ABS. NEUTROPHILS 4.97 1.60 - 8.30 x10'3/uL 11/06/2024 2:04 PM ORNAMENTAL MACHINE OPERATOR [facility] ABS. LYMPHOCYTES 1.47 0.80 - 4.70 x10'3/uL 11/06/2024 2:04 PM ORNAMENTAL MACHINE OPERATOR [facility] ABS. MONOCYTES 0.51 0.00 - 1.50 x10'3/uL 11/06/2024 2:04 PM ORNAMENTAL MACHINE OPERATOR [facility] ABS. EOSINOPHILS 0.09 0.00 - 0.40 x10'3/uL 11/06/2024 2:04 PM ORNAMENTAL MACHINE OPERATOR [facility] ABS. BASOPHILS 0.02 0.00 - 0.20 x10'3/uL 11/06/2024 2:04 PM ORNAMENTAL MACHINE OPERATOR [facility] ABS. IMMATURE GRANULOCYTES 0.01 0.00 - 0.03 x10'3/uL 11/06/2024 2:04 PM ORNAMENTAL MACHINE OPERATOR [facility] 11/06/2024 8:08 AM ORNAMENTAL MACHINE OPERATOR us [facility] Final Resul t [facility] [address] [place] [address], * EKG WELCHALLEN ACQUIRED (11/05/2024 9:46 AM ORNAMENTAL MACHINE OPERATOR) 11/05/2024 9:46 AM ORNAMENTAL MACHINE OPERATOR Narrative [facility] - 11/05/2024 11:31 AM ORNAMENTAL MACHINE OPERATOR [facility] [address] [place] [address] Test Date: 2024-11-05 Pat Name: JEVON MEJIA Department: 171 Room: Gender: Male Slab Lifting Supervisor: : 1950 Requested By: FROILAN LAYTON Order Number: [id number] Reading MD: Froilan Layton Measurements Intervals [facility] Rate: 72 P: 18 OR: 215 QRS: -28 QRSD: 95 T: 55 QT: 379 QTc: 415 Interpretive Statements SINUS RHYTHM WITH FIRST DEGREE AV BLOCK BORDERLINE LEFT AXIS DEVIATION No prior ECG for comparison MENTAL MACHINE OPERATOR Procedure Note Froilan Layton MD - 11/05/2024 [facility] [address] [place] [address] Test Date: 2024-11-05 Pat Name: JEVON MEJIA Department: 171 Room: Gender: Male Slab Lifting Supervisor: : 1950 Requested By: FROILAN LAYTON Order Number: [id number] Reading MD: Froilan Layton Measurements Intervals [facility] Rate: 72 P: 18 OR: 215 QRS: -28 QRSD: 95 T: 55 QT: 379 QTc: 415 Interpretive Statements SINUS RHYTHM WITH FIRST DEGREE AV BLOCK BORDERLINE LEFT AXIS DEVIATION No prior ECG for comparison MENTAL MACHINE OPERATOR Froilan Layton MD PROCEDURES-ORDERABLE NO CHARGE Final Result [facility] * REMOVAL IMPACTED CERUMEN IRRIGATION/LAVAGE UNILAT (11/05/2024 9:00 AM ORNAMENTAL MACHINE OPERATOR) Alaina David APNP - 11/05/2024 9:00 AM ORNAMENTAL MACHINE OPERATOR JAQUELINE Saunders 11/05/2024 10:18 AM *Ear Cerumen Removal Date/Time: 11/05/2024 9:00 AM Performed by: JAQUELINE Saunders Authorized by: JAQUELINE Saunders Location details: right ear Patient tolerance: patient tolerated the procedure well with no immediate complications Procedure type: irrigation Sedation: Patient sedated: no Alaina PARSONS PROCEDURE/MINOR SURGICAL OR DERABLES Final [...] a test for HCV RNA (test code 05508) is suggested. For additional information please refer to [email or web address]/faq/EFF24h1 (This link is being provided for informational/ educational purposes only.) 03/06/2022 12:3 4 PM CDT 03/06/2022 12:38 PM CDT Narrative [facility] - 03/07/2022 1:54 PM CDT FASTING:YES FASTING: YES [facility] Final Resul t [facility] [address] [place] [address] from Last 3 Months or Most Recently Relevant to Health Maintenance Insurance MEDICARE [facility] Care Teams Food Preparation Worker Relationship Specialty Start Date End Date Alaina Jennings APNP [address] [place] [address] [phone] PCP - General NURSE PRACTITIONER 12/23/18
--- OUTSIDE RECORDS SUMMARY | 2024-12-26 10:11 | XMS_ITS | Encounter Summary ---
Author Organization [facility] Address [address] [facility] [place] [address] Care Team Providers Care Technical Analyst Name Role Phone Unavailable Primary Care Provider Unavailabl e Encounter Details Date Type Department Care Team (Late st Contact Info) Description 02/04/2020 Lab Requisition [facility] [address] [facility] [place] [address] Mirtha Wells MD [address] [facility] 3 [place] [address] Social History Tobacco Use Types Packs/Day Years [...] AM CDT) Case Report Dermatopathology Report Case: [id number] Authorizing Provider: Mirtha Wells MD Collected: 02/04/2020 12:00 AM Ordering Location: [facility] D[facility] Lab Received: 02/04/2020 10:43 AM Pathologist: Carmel Storng MD Specimens: A) - Skin, right post neck B) - Skin, right hairline/FH 0 12:44 PM CDT DERMATOPATHOLOGY LABORATORY Clinical History A-B: R/O BCC, irritated, non-healing. 0 12:44 PM CDT DERMATOPATHOLOGY LABORATORY Gross Description Specimen A: Received is one formalin filled container labeled with the patient's name and designated right post neck. The specimen consists of a shave measuring 29l5w7eo. Jar 0. Specimen B: Received is one formalin filled container labeled with the patient's name and designated right hairline/FH. The specimen consists of a shave measuring 7j2o5xr. Jar 0. [facility] Dermatopathology Laboratory performed the technical component only. [...] characteristic determined by the Dermatopathology Laboratory at [facility], directed by Dr. Jenny Berger. [...] LAB - PATHOLOGY/CYT OLOGY ORDERABLES DERMATOPATHOLOGY LABORATORY [facility] - Department of Dermatology [address] [place] [address], 5th [place] [address], [facility] [phone] documented in this encounter Visit Diagnoses Not on filedocumented in this encounter
--- OUTSIDE RECORDS SUMMARY | 2024-12-26 10:11 | XMS_ITS | Encounter Summary ---
Author Organization [facility] Address [address] [facility] [place] [address] Care Team Providers Care Switch Crew Supervisor Name Role Phone Unavailable Primary Care Provider Unavailabl e Encounter Details Date Type Department Care Team (Late st Contact Info) Description 03/13/2019 Lab Requisition [facility] D[facility] Lab [address] [facility] [place] [address] Mirtha Wells MD [address] [facility] 3 DE[place] [address] Social History Tobacco Use Types Packs/Day Years [...] AM CDT) Case Report Dermatopathology Report Case: [id number] Authorizing Provider: Mirtha Wells MD Collected: 03/12/2019 12:00 AM Pathologist: Rex Berger MD Received: 03/13/2019 06:35 AM Specimens: A) - Skin, right jainism B) - Skin, left inferior sideburn 9 2:15 PM CDT DERMATOPATHOLOGY LABORATORY Final Diagnosis Specimen A. 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 The specimen consists of a shave (2 pieces) measuring [id number] & [id number]. The margins are inked green. Jar 0. Specimen B: Received is one formalin filled container labeled with the patient's name and designated left inferior sideburn. The specimen consists of a shave measuring 4e9m8qg. The margin is inked green. Jar 0. 2:15 PM T DERMATOPATHOLOGY LABORATORY Microscopic Description Specimen A. SKIN, right jainism: The epidermis shows parakeratosis, full thickness disorderly [...] characteristic determined by the Dermatopathology Laboratory at [facility], directed by Dr. Jenny Berger. These tests need not be, and therefore are not, approved by the [place] Food and Drug Administration. The tests are used for clinical purposes. Billing Codes Specimen Charges Stain Charges 75446 69406 1 1 2:15 PM CDT DERMATOPATHOLOGY LABORATORY Embedded Images 2:15 PM CDT DERMATOPATHOLOGY LABORATORY Pathology/Cytology TISSUE SPECIMEN FROM SKIN / Unknown 03/12/2019 03/13/2019 6:35 AM CDT Miscellaneous samples (specimen) TISSUE SPECIMEN FROM SKIN / Unknown 03/12/2019 03/13/2019 6:35 AM CDT Mirtha Wells MD LAB - PATHOLOGY/CYT OLOGY ORDERABLES DERMATOPATHOLOGY LABORATORY [facility] - Department of Dermatology [address] [place] [address], 5th Floor Lab B [address] [phone] documented in this encounter Visit Diagnoses Not on filedocumented in this encounter
--- OUTSIDE RECORDS SUMMARY | 2024-12-26 10:11 | XMS_ITS | Encounter Summary ---
Author Organization [facility] Address [address] [facility] [place] [address] Care Team Providers Care Youth Advocate Name Role Phone Unavailable Primary Care Provider Unavailabl e Encounter Details Date Type Department Care Team (Late st Contact Info) Description 05/29/[address] [facility] - DermPath Lab [address] [facility] [place] [address] Pina Smith MD [address] [facility] 3 [place] [address] Social History Tobacco Use Types Packs/Day Years [...] AM CDT) Case Report Dermatopathology Report Case: [id number] Authorizing Provider: Pina Smith MD Collected: 05/29/2024 09:28 AM Ordering Location: [facility] - Received: 05/30/2024 09:37 AM DermPath Lab Pathologist: Marilyn Hernandez MD Specimen: Skin, right back 12:36 PM CDT DERMATOPATHOLOGY LABORATORY Final Diagnosis Specimen A. 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 The specimen consists of a shave biopsy measuring 16q27e9 mm. Jar 0. 12:36 PM CDT DERMATOPATHOLOGY [...] purposes. Billing Codes Specimen Charges Stain Charges 19878 1 12:36 PM CDT DERMATOPATHOLOGY LABORATORY Embedded Images 12:36 PM CDT DERMATOPATHOLOGY LABORATORY Pathology/Cytolo gy TISSUE SPECIMEN FROM SKIN / Unknown 05/29/2024 9:28 AM CDT 05/30/2024 9:37 AM CDT Pina Smith MD LAB - PATHOLOGY/CYTO LOGY ORDERABLES DERMATOPATHOLOGY LABORATORY [facility] - Department of Dermatology [address], [address] [phone] documented in this encounter Visit Diagnoses Not on filedocumented in this encounter
--- OUTSIDE RECORDS SUMMARY | 2024-12-26 10:11 | XMS_ITS | Encounter Summary ---
Author Organization [facility] Address [address] [place] [address] Care Team Providers Care Tax Services Manager Name Role Phone Unavailable Primary Care Provider Unavailabl e Encounter Details Date Type Department Care Team (Late st Contact Info) Description 06/05/2024 Lab Requisition [facility] - DermPath Lab [address] [facility], [facility] [place] [address] Pina Smith MD [address] [facility] [address] [place] [address] Social History Tobacco Use Types Packs/Day Years [...] PM CDT) Case Report Dermatopathology Report Case: [id number] Authorizing Provider: Pina Smith MD Collected: 06/05/2024 02:08 PM Ordering Location: [facility] - Received: 06/09/2024 06:57 AM DermPath Lab [...] back.The specimen consists of an ellipse measuring [id number] mm and is oriented with the suture/notch [...] characteristic determined by the Dermatopathology Laboratory at [facility], directed by Dr. Jenny Berger. These tests need not be, and therefore are not, approved by the [place] Food and Drug Administration. The tests are used for clinical purposes. Billing Codes Specimen Charges Stain Charges 64494 1 11:55 AM CDT DERMATOPATHOLOGY LABORATORY Embedded Images 11:55 AM CDT DERMATOPATHOLOGY LABORATORY Pathology/Cytolo gy TISSUE SPECIMEN FROM SKIN / Unknown 06/05/2024 2:08 PM CDT 06/09/2024 6:57 AM CDT Pina Smith MD LAB - PATHOLOGY/CYTO LOGY ORDERABLES DERMATOPATHOLOGY LABORATORY [facility] - Department of Dermatology [facility] Medicine [facility] [facility] Floor [address] [phone] documented in this encounter Visit Diagnoses Not on filedocumented in this encounter
== END 2024-12-26 09:45 | disposition home or self-care (01) ==
PROVIDERS: PCP Registered Nurse; Visit Provider Registered Nurse
DX: R63.4 Abnormal weight loss (principal); N20.0 Calculus of kidney; K57.30 Diverticulosis of large intestine without perforation or abscess without bleeding; N40.0 Benign prostatic hyperplasia without lower urinary tract symptoms; Z85.71 Personal history of Hodgkin lymphoma
CPT/HCPCS: 71260; 74177; Q9967